=== PATIENT | male | born 1985 | race Caucasian/White ===

== ENCOUNTER 2018-05-24 18:22 | Emergency (ER) | payer OTHER, SELFPAY ==
[2018-05-24 18:23] VITALS: BP 140/99; PULSE 64; RESP 16; TEMP 36.7; O2SAT 99; BMI 32.3
[2018-05-24 19:15] VITALS: O2SAT 100
--- NOTE | 2018-05-24 19:15 | RAD_ITS ---
STUDY: X-RAY CHEST REASON FOR EXAM: Male, 32 years old. Chest pain TECHNIQUE: AP portable COMPARISON: June 16, 2016 FINDINGS: The lungs are clear and expanded. There is no demonstrated pleural abnormality. Normal size heart. Normal mediastinum and bronson. Normal visualized pulmonary arteries. Normal visualized aortic arch and descending thoracic aorta. Normal visualized thoracic spine. Normal visualized ribs, clavicles, and shoulders. There is no demonstrated abnormality of the visualized soft tissue structures of the upper abdomen. No change since previous study RAD/Chest 1 View (Portable) IMPRESSION: Normal x-ray examination of the chest. Electronically Signed: Dallin Chopra MD at 19:38 EST , Service support ,
[2018-05-24 19:22] VITALS: BP 132/74; PULSE 58; RESP 16; O2SAT 97
[2018-05-24] MEDS: Aspirin 81 MG TAB.CHEW 324 MG PO (19:25)
--- NOTE | 2018-05-24 19:29 | EKG12_ITS ---
Test Reason : CP Blood Pressure : / mmHG Vent. Rate : 063 BPM Atrial Rate : 063 BPM P-R Int : 154 ms QRS Dur : 086 ms QT Int : 408 ms P-R-T Axes : 018 002 030 degrees QTc Int : 417 ms Normal sinus rhythm Normal ECG Confirmed by BETSY RUIZ, MANINDER ([id number]), editor index MAGALI CYR ([id number]) on 05/26/2018 3:17:24 PM Referred By: DR JARQUIN Confirmed By:MANINDER MEYER MD
[2018-05-24 19:34] LABS: Absolute Lymphocyte Count 1.84 X10^3/ul (0.83-4.51); Absolute Neutrophil Count 3.1 X10^3/uL (2.0-7.7); Basophil# 0.02 X10^3/uL; Basophil% 0.4 % (0-1); Eosinophil# 0.09 X10^3/uL; Eosinophils% 1.7 % (0-5); Hematocrit 45.2 % (40-54); Hemoglobin 15.1 g/dl (13.0-16.5); Lymphocyte # 1.84 X10^3/ul (4.0); Mean Corp Hgb Conc 33.4 g/gl (32-36); Mean Corpuscular Hgb 30.3 pg (27.0-32.0); Mean Corpuscular Volume 90.8 fL (80-94); Mean Platelet Vol. 10.3 fl (6.2-12.0); Monocyte# 0.39 X10^3/uL; Monocyte% 7.2 % (0-10); Neutrophil # 3.07 X10^3/uL (2.7-7.7); Neutrophil % 56.7 % (47-70); Platelet Count 268 K/mm3 (150-450); RBC Distribution Width CV 13.3 % (11.6-14.6); RBC Distribution Width SD 43.4 fl (35.1-43.9); Red Blood Count 4.98 M/mm3 (4.6-6.2); White Blood Count 5.4 K/mm3 (4.4-11.0)
[2018-05-24 19:36] LABS: POSITIVE COUNT NO; POSITIVE DIFFERENTIAL NO; POSITIVE MORPHOLOGY NO
[2018-05-24 19:50] LABS: Anion Gap 8 (5-15); BUN 16 mg/dL (7-18); BUN/Creat Ratio 16.7 RATIO (10-20); Calcium,Total 9.2 mg/dL (8.5-10.1); Chloride 101 mmol/L (98-107); Creatinine, Serum 0.96 mg/dL (0.70-1.30); EST Glomerular Filtration Rate 95 mL/min (>60); Est Glom Filt Rate - Afr Amer 115 mL/min (>60); Glucose 76 mg/dL (74-106); Potassium 3.8 mmol/L (3.5-5.1); Sodium Level 138 mmol/L (136-145)
[2018-05-24 20:00] VITALS: BP 115/87; PULSE 59; RESP 16; O2SAT 95
--- NOTE | 2018-05-24 20:43 | ED.VISSUMM ---
- ER Visit Summary Date of Service: 05/24/18 Chief Complaint: Chest pain History of Present Illness: The patient is a 32 M with 4-day history of chest pain this is intermittent and lasts 1-2 seconds and sharp. He also has some indigestion and epigastric pain. There is nausea no vomiting. No fever chills back pain or cough. Physical Examination: Not appear in acute distress. Moist mucous membranes, no obvious facial deformity No C-spine tenderness supple neck. Regular rate and rhythm without any obvious murmurs Clear lungs bilaterally speaking in full sentences without any obvious respiratory distress Abdomen soft and nontender to my palpation, no epigastric pain, no guarding or rebound Moves all extremities without any difficulty or pain. Skin does not show any obvious rashes or lesions, no trauma. Alert oriented ?3 with no gross focal deficit Emergency Department Course and Treatment: Patient has a normal cardiac workup, heart score is a 0. He is certainly safe for discharge. This may be indigestion I will treat as such. Discharge stable condition Impression: Chest pain unknown etiology This note was generated with Sponge dictation software. It may contain incorrect words, spelling, and punctuation that were not noted in review of the chart prior to signing ED Disposition - Plan for ED Patient: Disposition: Home or Assisted Living Chief Complaint: Chest Pain Instructions: ED Chest Pain Noncardiac Ch, ED Chest Pain Atypical Unkn Cause Prescriptions: Omeprazole 40 mg PO DAILY #30 capsule. Referrals: Lionel Marsh MD [Primary Care Provider] - 3-5 Days
[2018-05-24 21:14] VITALS: BP 118/74; PULSE 72; RESP 17; O2SAT 96
== END 2018-05-24 21:14 | disposition home or self-care (01) ==
PROVIDERS: Emergency Provider Emergency Medicine; Family Provider Family Medicine; PCP Family Medicine
DX: R07.9 Chest pain, unspecified (principal); R10.13 Epigastric pain
CPT/HCPCS: 71045; 80048; 84484; 85025; 93005; 99285; A4216

== ENCOUNTER → 2018-06-20 10:38 | Outpatient (CLI) | payer OTHER, SELFPAY ==
[2018-06-08 14:47] VITALS: BMI 31.1
--- NOTE | 2018-06-20 10:40 | STE_ITS ---
Reason For Study: chest pain Stress Results Protocol: Aureliano Protocol Maximum Predicted HR: 185 bpm Target HR: 157 bpm % Maximum Predicted HR: 98 % DurationHeart Rate Stage (mm:ss) (bpm) BP Baseline 50 120/84 Stage 1 3:00 102 138/98 Stage 2 3:00 129 160/88 Stage 3 3:00 164 172/96 Stage 4 2:01 181 182/94 Recovery 101 122/74 Stress Duration: 11:01 mm:ss Maximum Stress HR: 181 bpm Baseline Echocardiogram Findings Stress Echo Wall motion Data Resting WM Intermediate WM Stress WM Resting Wall Motion Wall Motion Stress No regional wall motion No regional wall motion abnormalities noted. abnormalities noted. Ejection Fraction 55 %. Ejection Fraction 65 %. Stress Results Normal blood pressure response to exercise. Exercise was stopped due to achievement of target heart rate. Interpretation Summary Exercise stress echo. Resting EKG demonstrates sinus bradycardia with a rate of 54 bpm normal intervals are noted resting blood pressure 120/84 mmHg. The patient exercised according to the regular Aureliano protocol for a total duration of 11 minutes completing 2 minutes into stage IV of the Aureliano protocol the maximum heart rate attained was 193 bpm which was 104% of maximum predicted heart rate the maximum workload was 13.7 metabolic equivalents. At rest there were no ST or T wave changes noted suggest ischemia at peak exercise no ST or T wave changes were noted to suggest ischemia. The resting blood pressure is 120/84 with a peak blood pressure 182/94 mmHg. Rate pressure product was 29,068. No angina was noted no arrhythmias were noted. Stress echocardiographic images. The resting echocardiographic images demonstrated an ejection fraction of 55% with no regional wall motion abnormalities present. The stress echocardiographic images demonstrated thickening of all gamboa and improvement in left ventricular ejection fraction estimated at 65%. No wall motion abnormalities were noted. Conclusion: Normal stress echocardiographic images at a high workload. No clinical angina noted. Preserved ejection fraction. Excellent functional capacity. Ordering Physician: Dipak Cota MD Referring Physician: Dipak Cota Performed By: Raya Moy RDCS
--- OUTSIDE RECORDS SUMMARY | 2018-08-13 15:57 | XMS RPT_ITS | Clinical Summary ---
:1985 Author Organization [facility] Address [address] [place] [phone] Phone Care Team Providers Name Role Phone Juan Carlos Interiano Unavailable Conditions or Problems Problem Name Problem Onset Status Entry Provider Comment Standard Annotate Code Date Date Description Abdominal 40600921 Active Juan Carlos Barton Abdominal pain pain (SNOMED 08/09 08/[address]) Mononucleosis 374827287 Active Roberto D Infectious , infectious (SNOMED 10/20 10/[address]) Fatigue 90677766 Active Roberto D Fatigue (SNOMED 10/20 10/[address]) Abdominal 548831486 Active Arely Lora Acute abdominal pain, acute (SNOMED 10/20 10/[address]) 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 Abdominal 340940848 Active Ameena Tineo Right lower pain, right (SNOMED 03/05 03/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 thoracic structure CT) DO structure Pharyngitis, 791233643 Resolved Sukh A Acute acute (SNOMED 08/12 09/[address]) DO Conjunctiviti 3375127 Active Sukh A Conjunctivitis s (SNOMED 10/30 10/[address]) DO Palpitations 46344652 Active Sukh A Palpitations (SNOMED 10/30 10/[address]) DO Chest pain, 398219185 Active Sukh A Atypical chest atypical (SNOMED 10/30 10/[address]) DO Pharyngitis, 339456649 Removed Beatriz A Acute acute (SNOMED 08/12 09/15 Malys, DO pharyngitis CT) Medications Medication Instructions Start Stop Generic Name NDC Provider Date Date LORAZEPAM 1 MG 1/2-1 tablet by LORAZEPAM [id number] Sukh A TABS mouth daily as 8 Maximo DO needed for anxiety OLOPATADINE HCL One drop in each OLOPATADINE 32930237123 Sukh A 0.1 % SOLN eye daily 5 HCL Maximo DO LIDOCAINE 1-2 ml po every LIDOCAINE HCL 65686197371 Beatriz A VISCOUS 2 % 4-6 hours as 5 Malys, DO SOLN needed for sore throat AMOXICILLIN 875 1 po Twice daily AMOXICILLIN 27165828493 Beatriz A MG TABS x 7 days 5 Malys, DO AMOXICILLIN 875 1 po Twice daily / AMOXICILLIN 68925267615 Sukh A MG TABS x 7 days 5 14 Maximo DO LIDOCAINE 1-2 ml po every / LIDOCAINE HCL 53832517433 Sukh A VISCOUS 2 % 4-6 hours as 5 14 Maximo DO SOLN needed for sore throat OLOPATADINE HCL One drop in each / OLOPATADINE 98493709231 Sukh A 0.1 % SOLN eye daily 5 15 HCL Maximo DO LORAZEPAM 1 MG 1/2-1 tablet by / LORAZEPAM 33126867107 Sukh A TABS mouth daily as 8 15 Maximo DO needed for anxiety Medications Administered No information available. Allergies, Adverse Reactions, Alerts Observed no known allergies at Results Date Name Value Unit Range Flag Description Lab Report: CK-MB Quantitative and Index CK-MB INDEX% 1.6 % 0.0-1.4 H CK-MB (creatine kinase-MB) index, percentage CPK MB 0.9 NG/ML 0.0-5.0 creatine kinase MB isoenzyme (band), serum Replaced Document: (P) CBC W/Diff, Automated LYMPHCT AUTO 1.18 X10 3/UL 10*3/mm3 0.83-4.51 lymphocyte count, blood, automated ANC 2.1 X10 3/UL 10*3/mm3 2.0-7.7 neutrophil count, blood IMM GRANU % 0.000 % 0.0-0.9 immature granulocytes, percentage of total cells, blood BASOPHIL % 0.0 % 0-1 basophils as percent of blood leukocytes EOSINOPHIL % 1.6 % 0-5 eosinophils as percent of blood leukocytes MONOCYTE % 9.2 % 0-10 monocytes as percent of blood leukocytes LYMPHS % 31.8 % 19-41 lymphocytes as percent of blood leukocytes PMN % 57.4 % 47-70 neutrophils as percent of blood leukocytes Lab Report: Erythrocyte Sed Rate ESR 1 mm/h 0-15 erythrocyte sedimentation rate Lab Report: Vitamin B12 B12 473 pg/mL 211-911 vitamin b12, serum Lab Report: Comprehensive Metabolic Profil ANION GAP 5 5-15 anion gap, serum CO2 31.0 mmol/L 21.0-32.0 carbon dioxide, venous blood CHLORIDE 102 mmol/L 98-107 chloride, serum POTASSIUM 4.2 mmol/L 3.5-5.1 potassium, serum SODIUM 138 mmol/L 136-145 sodium, serum BILI TOTAL 0.60 mg/dL 0.20-1.00 bilirubin, serum, total SGPT (ALT) 34 U/L 12-78 alanine aminotransferase (SGPT), serum ALK PHOS 76 U/L 50-136 alkaline phosphatase, serum SGOT (AST) 33 U/L 15-37 aspartate aminotransferase (SGOT), serum CALCIUM 9.1 mg/dL 8.5-10.1 calcium, serum A/G RATIO 1.2 RATIO 0.9-2.4 albumin/globulin ratio, serum GLOBULIN TOT 3.2 g/dL 2.3-3.5 globulins, serum, total ALBUMIN 4.0 g/dL 3.4-5.0 albumin, serum PROTEIN, TOT 7.2 g/dL 6.4-8.2 protein, total, serum BUN/CREAT 13.6 RATIO 10-20 urea nitrogen/creatinine ratio, serum GFRAA 117 mL/min >60 Glomerular Filtration rate GFR EST 97 mL/min >60 estimated glomerular filtration rate CREATININE 0.96 mg/dL 0.70-1.30 creatinine, serum BUN 13 mg/dL 7-18 urea nitrogen, blood GLUCOSE SER 85 mg/dL 70-110 blood glucose Lab Report: CPK Total, Creatine Kinase CPK 239 U/L 39-308 creatine kinase, serum Lab Report: Magnesium MAGNESIUM 2.2 mg/dL 1.8-2.4 magnesium, serum Lab Report: Folates, (Folic Acid) FOLATE 26.20 ng/mL 3.1-17.5 H folate, serum Lab Report: Thyroid Stim Hormone (TSH) TSH 1.78 u[iU]/mL 0.358-3.74 thyroid stimulating hormone, serum Lab Report: CRP CRP < 2.90 mg/L mg/dL 0.0-3.0 C-reactive protein, serum Lab Report: ANTINUCLEAR ANTIBODIES DIRECT LARISA Negative Negative antinuclear antibody EKG Report: Midmark ECG Observations EKG INTERP Marked sinus electrocardiogram Bradycardia BORDERLINE interpretation RHYTHM EKG T AXIS 39 deg T wave axis, electrocardiogram EKG QRS AXIS 51 deg QRS axis, electrocardiogram EKG PWAVAXIS 36 deg P wave axis, electrocardiogram QRS INTERVAL 90 ms QRS duration, electrocardiogram ZZ-GE-[id number] 403 ms GE use only - for LinkLogic import when terms are not otherwise specified QT INTERVAL new path ms QT interval, electrocardiogram TN INTERVAL 148 ms TN interval, electrocardiogram EKGHRTRATE 48 BPM heart rate on electrocardiogram Lab Report: Troponin-I TROPONIN I < 0.02 ng/mL <0.06 troponin I Lab Report: CBC-Complete Blood Cnt No Diff MPV 10.4 fL 6.2-12.0 mean platelet volume PLATELETS 239 10*3/mm3 150-450 platelet count RDW-SD 44.7 fL 35.1-43.9 H red blood cell distribution width, size density RDW 13.8 % 11.6-14.6 red blood cell distribution width MCHC RBC 34.5 G/GL g/dL 32-36 mean corpuscular hemoglobin concentration, RBC MCH 30.8 pg 27.0-32.0 mean corpuscular hemoglobin, RBC MCV 89.1 fL 80-94 mean corpuscular volume, RBC HCT 42.6 % 40-54 hematocrit, blood HGB 14.7 g/dL 13.0-16.5 hemoglobin, blood RBC M/UL 4.78 10*6/uL 4.6-6.2 red blood count WBC BLOOD 4.5 10*9/L 4.4-11.0 leukocyte (white blood cells) count, blood Office Visit: UC: stomach pain x 3 weeks MONO TEST positive heterophile antibody screen (Monospot) Office Visit: UC: left lateral Abd pain MEDS REVIEW Done Documentation of current medications (procedure) NKMED T Documentation of current medications (procedure) FALLRSKASSES No Fall risk assessment ORALTOBACUSE Never Tobacco smoking status NHIS SMOK STATUS Never smoker Tobacco use [facility] Plan of Care Type Date Detail Appointment 04:30 PM Juan Carlos BEARD, [address] [facility] [address], [address], [place], [address], Referral ENT referral [facility] [place], [address] [place] [address], [place], [address] Referral ENT referral [facility], [address] [place] [address], [place], [address] Pending order *TROP - Troponin I Pending order X-Ray, Chest, PA & Lateral Pending order CT Abdomen and pelvis; without and with contrast Pending order EKG (In office) Pending order *CBC without Diff Pending order *CBC with Differential Pending order *CMP Complete Metabolic Panel Pending order *CRP - C-Reative Protein Pending order *B-12 Pending order *FOLS Folates-Folic Acid, Serum Pending order *Magnesium Pending order *TSH Pending order *LARISA Pending order *Sedimentation Rate (ESR) Pending order *Creatine Kinase (CK) Pending order *MERB Quantitative Mercury Pending order CT Thoracic Spine with Contrast Pending order MRI Thoracic Spine with Contrast Pending order *CBC with Differential Pending order *CRP - C-Reative Protein Pending order *Sedimentation Rate (ESR) Pending order *CKMB - CK-MB Quantitative & REL Index Pending order *LARISA Pending order *CMP Complete Metabolic Panel Pending order X-Ray, Chest, PA & Lateral Patient education ABDOMINAL%20PAIN Procedures Code Procedure Name Date Entry Date CPT-05372 Monospot (Office) 70866-4 *CBC without Diff 12719-6 *TROP - Troponin I CPT-70534 EKG (In office) 0184-1 *CBC with Differential 0786-1 *CMP Complete Metabolic Panel 56710-8 *CRP - C-Reative Protein 2132-9 *B-12 2284-8 *FOLS Folates-Folic Acid, Serum 79369-8 *Magnesium 3016-3 *TSH 15796-3 *Sedimentation Rate (ESR) 2157-6 *Creatine Kinase (CK) 5685-3 *MERB Quantitative Mercury 0270-1 *LARISA CPT-03853 CT Thoracic Spine with Contrast CPT-15984 MRI Thoracic Spine with Contrast 0184-1 *CBC with Differential 79547-9 *CRP - C-Reative Protein 03077-5 *Sedimentation Rate (ESR) 0173-1 *CKMB - CK-MB Quantitative & REL Index 0786-1 *CMP Complete Metabolic Panel 0270-1 *LARISA CPT-90872 X-Ray, Chest, PA & Lateral Vital Signs Date Name Value Unit Description BMI (Body Mass Index) 30.38 kg/m2 Body Mass Index [Ratio] Body Temperature 97.7 [degF] temperature E&M BP Diastolic 74 mm[Hg] blood pressure, diastolic - 8462-4 BP Systolic 108 mm[Hg] blood pressure, systolic - 8480-6 Heart Rate 74 /min pulse rate E&M - 8867-4 Height 72 [in_us] height E&M - 8302-2 Respiratory Rate 12 /min respiratory rate E&M - 9279-1 Weight Measured 224 [lb_av] weight E&M - 3141-9 BSA (Body Surface Area) 2.18 body surface area
--- OUTSIDE RECORDS SUMMARY | 2018-08-13 15:57 | XMS RPT_ITS | Clinical Summary ---
:1985 Author Organization [facility], [facility] Address [address] [place] [address] Phone Care Team Providers Name Role Phone Sonya GLASS, Sukh A Unavailable Conditions or Problems Problem Name Problem Onset Status Entry Provider Comment Standard Annotate Code Date Date Description Pharyngitis 369935471 Active Sukh A Pharyngitis (SNOMED 08/15 08/[address]) MARIA LUISA Abdominal 64993550 Active Juan Carlos Barton Abdominal pain pain (SNOMED 08/09 08/[address]) Mononucleosis 020784736 Active Roberto D Infectious , infectious (SNOMED 10/20 10/[address]) Fatigue 60351231 Active Roberto D Fatigue (SNOMED 10/20 10/[address]) Abdominal 355223818 Active Arely Lora Acute abdominal pain, 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 (SNOMED 10/20 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 682289712 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 Ameena Tineo Right lower pain, right (SNOMED 03/05 03/05 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 lower CT) quadrant Leukopenia, 02980899 Active Sukh A Leukopenia mild (SNOMED 02/06 02/[address]) DO Muscle strain 70466239 Inactive Sukh A Muscle strain (SNOMED 02/06 02/[address]) DO Muscle spasm 14706393 Active Sukh A Cramp (SNOMED 01/30 01/[address]) DO Numbness 27170013 Active Sukh A Numbness parethesias (SNOMED 01/30 01/[address]) DO Generalized 69301413 Active Sukh A Generalized anxiety (SNOMED 12/03 12/03 [facility] anxiety disorder CT) DO disorder Mass of 351216078 Active Sukh A Mass of thoracic (SNOMED 12/03 12/03 [facility] thoracic structure CT) DO structure Pharyngitis, 339072059 Resolved Sukh A Acute acute (SNOMED 08/12 09/15 [facility] pharyngitis CT) DO Conjunctiviti 5917692 Active Sukh A Conjunctivitis s (SNOMED 10/30 10/[address]) DO Palpitations 06636281 Active Sukh A Palpitations (SNOMED 10/30 10/[address]) DO Chest pain, 052183405 Active Sukh A Atypical chest atypical (SNOMED 10/30 10/[address]) DO Pharyngitis, 952289695 Removed Beatriz A Acute acute (SNOMED 08/12 09/15 Malys, DO pharyngitis CT) Medications Medication Instructions Start Stop Generic Name [facility] Provider Date Date LORAZEPAM 1 MG 1/2-1 tablet by LORAZEPAM 11628553874 Sukh A TABS mouth daily as 8 Maximo DO needed for anxiety OLOPATADINE HCL One drop in each OLOPATADINE 58933897542 Sukh A 0.1 % SOLN eye daily 5 HCL Maximo DO LIDOCAINE 1-2 ml po every LIDOCAINE HCL 77468598839 Beatriz A VISCOUS 2 % 4-6 hours as 5 Malys, DO SOLN needed for sore throat AMOXICILLIN 875 1 po Twice daily AMOXICILLIN 29702819424 Beatriz A MG TABS x 7 days 5 Malys, DO AMOXICILLIN 875 1 po Twice daily / AMOXICILLIN 77996781044 Sukh A MG TABS x 7 days 5 14 Maximo DO LIDOCAINE 1-2 ml po every / LIDOCAINE HCL 53419381080 Sukh A VISCOUS 2 % 4-6 hours as 5 14 Maximo DO SOLN needed for sore throat OLOPATADINE HCL One drop in each / OLOPATADINE 54157946252 Sukh A 0.1 % SOLN eye daily 5 15 HCL Maximo DO LORAZEPAM 1 MG 1/2-1 tablet by LORAZEPAM 76382124344 Sukh A TABS mouth daily as 8 [...] INTERVAL new path ms QT interval, electrocardiogram GA INTERVAL 148 ms GA interval, electrocardiogram EKGHRTRATE 48 BPM heart rate [...] heterophile antibody screen (Monospot) Office Visit: UC: Sore throat/congestion RAPID STREP negative Streptococcus pyogenes DNA [Presence] in Throat by Probe and target amplification method MEDS REVIEW Done Documentation of current medications (procedure) NKMED T Documentation of current medications (procedure) FALLRSKASSES No Fall risk assessment ORALTOBACUSE Never Tobacco smoking status NHIS SMOK STATUS Never smoker Tobacco use [facility] Plan of Care Type Date Detail Appointment 02:30 PM Roberto BEARD, [address] [place] [address], [address], [place], [address], Referral ENT referral [place], [address] [place] [address], [address] Referral ENT referral [facility] [place], [address] [place] [address], [address] Pending order *Culture, R/O Strep A Swab Pending order *TROP - Troponin I Pending [...] Procedures Code Procedure Name Date Entry Date CPT-37855 Rapid Strep (Office) CPT-58279 Monospot (Office) 16702-3 *CBC without Diff 12544-3 *TROP - Troponin I CPT-07116 EKG (In office) 0184-1 *CBC with Differential 0786-1 *CMP Complete Metabolic Panel 62922-8 *CRP - C-Reative Protein 2132-9 *B-12 2284-8 *FOLS Folates-Folic Acid, Serum 71339-4 *Magnesium 3016-3 *TSH 47858-8 *Sedimentation Rate (ESR) 2157-6 *Creatine Kinase (CK) 5685-3 *MERB Quantitative Mercury 0270-1 *LARISA CPT-77708 CT Thoracic Spine with Contrast CPT-87547 MRI Thoracic Spine with Contrast 0184-1 *CBC with Differential 11379-2 *CRP - C-Reative Protein 29040-5 *Sedimentation Rate (ESR) 0173-1 *CKMB - CK-MB Quantitative & REL Index 0786-1 *CMP Complete Metabolic Panel 0270-1 *LARISA CPT-36312 X-Ray, Chest, PA & Lateral Vital Signs Date Name Value Unit Description BMI (Body Mass Index) 30.65 kg/m2 Body Mass Index [Ratio] Body Temperature 98.4 [degF] temperature E&M BP Diastolic 82 mm[Hg] blood pressure, diastolic - 8462-4 BP Systolic 124 mm[Hg] blood pressure, systolic - 8480-6 Heart Rate 62 /min pulse rate E&M - 8867-4 Height 72 [in_us] height E&M - 8302-2 Respiratory Rate 12 /min respiratory rate E&M - 9279-1 Weight Measured 226 [lb_av] weight E&M - 3141-9 BSA (Body Surface Area) 2.18 body surface area
--- OUTSIDE RECORDS SUMMARY | 2018-08-13 15:57 | XMS RPT_ITS | Clinical Summary ---
:1985 Author Organization [facility] Address [address] [place] [id number] Phone Care Team Providers Name Role Phone Roberto Cerda Unavailable Conditions or Problems Problem Name Problem Onset Status Entry Provider Comment Standard Annotate Code Date Date Description Pharyngitis 762474829 Active Sukh A Pharyngitis (SNOMED 08/15 08/[address]) PA-C Abdominal 76871385 Active Juan Carlos Barton Abdominal pain pain (SNOMED 08/09 08/[address]) Mononucleosis 508326535 Active Roberto Barron Infectious , infectious (SNOMED 10/20 10/[address]) Fatigue 80513520 Active Roberto D Fatigue (SNOMED 10/20 10/[address]) Abdominal 963211218 Active Arely Lora Acute abdominal pain, acute (SNOMED 10/20 10/[address]) 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 Abdominal 359471467 Active Ameena Tineo Right lower pain, right (SNOMED 03/05 03/05 Jack [employer]ACH[employer] quadrant pain lower CT) quadrant Leukopenia, 38392134 Active Sukh A Leukopenia mild (SNOMED 02/06 02/[address]) DO Muscle strain 03563585 Inactive Sukh A Muscle strain (SNOMED 02/06 02/[address]) DO Muscle spasm 09755087 Active Sukh A Cramp (SNOMED 01/30 01/[address]) DO Numbness 26072576 Active Sukh A Numbness parethesias (SNOMED 01/30 01/[address]) DO Generalized 41793188 Active Sukh A Generalized anxiety (SNOMED 12/03 12/03 [facility] anxiety disorder CT) DO disorder Mass of 325009096 Active Sukh A Mass of thoracic (SNOMED 12/03 12/03 [facility] thoracic structure CT) DO structure Pharyngitis, 528777448 Resolved Sukh A Acute acute (SNOMED 08/12 09/15 [facility] pharyngitis CT) DO Conjunctiviti 6338906 Active Sukh A Conjunctivitis s (SNOMED 10/30 10/[address]) DO Palpitations 84706646 Active Sukh A Palpitations (SNOMED 10/30 10/[address]) DO Chest pain, 197712331 Active Sukh A Atypical chest atypical (SNOMED 10/30 10/[address]) DO Pharyngitis, 280596680 Removed Beatriz A Acute acute (SNOMED 08/12 09/15 Malys, DO pharyngitis CT) Medications Medication Instructions Start Stop Generic Name [facility] Provider Date Date LORAZEPAM 1 MG 1/2-1 tablet by LORAZEPAM [id number] Sukh A TABS mouth daily as 8 Maximo DO needed for anxiety OLOPATADINE HCL One drop in each OLOPATADINE 56446193640 Sukh A 0.1 % SOLN eye daily 5 HCL Maximo DO LIDOCAINE 1-2 ml po every LIDOCAINE HCL 43790298329 Beatriz A VISCOUS 2 % 4-6 hours as 5 Malys, DO SOLN needed for sore throat AMOXICILLIN 875 1 po Twice daily AMOXICILLIN 54054464348 Beatriz A MG TABS x 7 days 5 Malys, DO AMOXICILLIN 875 1 po Twice daily / AMOXICILLIN 59107969183 Sukh A MG TABS x 7 days 5 14 Maximo DO LIDOCAINE 1-2 ml po every / LIDOCAINE HCL 75398900180 Sukh A VISCOUS 2 % 4-6 hours as 5 14 Maximo DO SOLN needed for sore throat OLOPATADINE HCL One drop in each / OLOPATADINE 12810253351 Sukh A 0.1 % SOLN eye daily 5 15 HCL Maximo DO LORAZEPAM 1 MG 1/2-1 tablet by LORAZEPAM 26230088088 Sukh A TABS mouth daily as 8 [...] QRS INTERVAL 90 ms QRS duration, electrocardiogram QT INTERVAL new path ms QT interval, electrocardiogram TX INTERVAL 148 ms TX interval, electrocardiogram EKGHRTRATE 48 BPM heart rate [...] status NHIS SMOK STATUS Never smoker Tobacco smoking status [facility] Microbiology: Culture, R/O Strep A [id number] . GE use only - for [employer] import when terms are not otherwise specified Plan of Care Type Date Detail Referral ENT referral [facility], [address] [place] [address], [phone] Referral ENT referral [facility], [address] [place] [address], [phone] Pending order *Culture, R/O Strep A Swab [...] Procedures Code Procedure Name Date Entry Date CPT-57847 Rapid Strep (Office) CPT-37998 Monospot (Office) 05351-2 *CBC without Diff 48576-6 *TROP - Troponin I CPT-87081 EKG (In office) 0184-1 *CBC with Differential 0786-1 *CMP Complete Metabolic Panel 58026-2 *CRP - C-Reative Protein 2132-9 *B-12 2284-8 *FOLS Folates-Folic Acid, Serum 91643-3 *Magnesium 3016-3 *TSH 84578-5 *Sedimentation Rate (ESR) 2157-6 *Creatine Kinase (CK) 5685-3 *MERB Quantitative Mercury 0270-1 *LARISA CPT-57123 CT Thoracic Spine with Contrast CPT-52175 MRI Thoracic Spine with Contrast 0184-1 *CBC with Differential 55692-2 *CRP - C-Reative Protein 23393-8 *Sedimentation Rate (ESR) 0173-1 *CKMB - CK-MB Quantitative & REL Index 0786-1 *CMP Complete Metabolic Panel 0270-1 *LARISA CPT-65637 X-Ray, Chest, PA & Lateral Vital Signs [...]
--- OUTSIDE RECORDS SUMMARY | 2018-08-13 15:58 | XMS RPT_ITS ---
:1985 Author Organization OHIP Care Team Providers Name Role Phone Lionel Marsh Primary Care Unavailable Konstantin Jarquin Attending Unavailable Tresa Miller Attending Unavailable Beata, Lorton Attending Unavailable Sukh Marsh Referring Unavailable Beata, Lorton Attending Unavailable Beata, Dipak Referring Unavailable Lionel Marsh Primary Care Unavailable Beata, Lorton Attending Unavailable Beata, Dipak Referring Unavailable Lionel Marsh Primary Care Unavailable Beata, Dipak Consulting Unavailable PROBLEMS PROBLEMS DATE TYPE CONDITION / CODE ATTENDING STATUS SOURCE 06/20/2018 Unknown R07.89 - Other Beata, Dipak Active [facility] chest pain / Community R07.89(ICD-10) Hospital Repository PROCEDURES PROCEDURES No Procedure Records FoundRESULTS RESULTS STRESS TEST ECHO W/O Observed: 06/20/2018 Status: F Source: [facility] CONTRAST 12:45 PM [facility] REPOSITORY [facility] Cardiovascular [address] [address] Stress Test Echo w/o Contrast MR#: [id number] Acct: [id number] Name: OTIS GEE Rep #: [id number] : 1985 33 From: Dipak Meyer MD [facility] Status: REG CLI Ordering Dr: Dipak Meyer MD Sex: M C Reason For Study: chest pain Stress Results Protocol: Aureliano Protocol Maximum Predicted HR: 185 bpm Target HR: 157 bpm % Maximum Predicted HR: 98 % DurationHeart Rate Stage (mm:ss) (bpm) BP Baseline 50 120/84 Stage 1 3:00 102 138/98 Stage 2 3:00 129 160/88 Stage 3 3:00 164 172/96 Stage 4 2:01 181 182/94 Recovery 101 122/74 Stress Duration: 11:01 mm:ss Maximum Stress HR: 181 bpm Baseline Echocardiogram Findings Stress Echo Wall motion Data Resting WM Intermediate WM Stress WM Resting Wall Motion Wall Motion Stress No regional wall motion No regional wall motion abnormalities noted. abnormalities noted. Ejection Fraction 55 %. Ejection Fraction 65 %. Stress Results Normal blood pressure response to exercise. Exercise was stopped due to achievement of target heart rate. Interpretation Summary Exercise stress echo. Resting EKG demonstrates sinus bradycardia with a rate of 54 bpm normal intervals are noted resting blood pressure 120/84 mmHg. The patient exercised according to the regular Aureliano protocol for a total duration of 11 minutes completing 2 minutes into stage IV of the Aureliano protocol the maximum heart rate attained was 193 bpm which was 104% of maximum predicted heart rate the maximum workload was 13.7 metabolic equivalents. At rest there were no ST or T wave changes noted suggest ischemia at peak exercise no ST or T wave changes were noted to suggest ischemia. The resting blood pressure is 120/84 with a peak blood pressure 182/94 mmHg. Rate pressure product was 29,068. No angina was noted no arrhythmias were noted. Stress echocardiographic images. The resting echocardiographic images demonstrated an ejection fraction of 55% with no regional wall motion abnormalities present. The stress echocardiographic images demonstrated thickening of all gamboa and improvement in left ventricular ejection fraction estimated at 65%. No wall motion abnormalities were noted. Conclusion: Normal stress echocardiographic images at a high workload. No clinical angina noted. Preserved ejection fraction. Excellent functional capacity. Ordering Physician: Dipak Meyer MD Referring Physician: Dipak Meyer Performed By: Raya Moy RDCS 06/20/18 1245 Date Dipak Meyer MD CC: Dipak Meyer MD; Sukh Marsh DO; Lionel Marsh MD Date Dictated: 06/20/18 1101 Date Transcribed: 06/20/18 1245 Seed Sales Manager: Signed CARDIOLOGY VISIT Observed: 06/08/2018 Status: F Source: [place] REPORT 3:52 PM [facility] REPOSITORY [place] [facility] [address] [place] [address] OFFICE VISIT Date of Service: 06/08/18 MR#: [id number] Acct: [id number] Name: OTIS GEE Rep #: [id number] : 1985 Provider: Dipak Meyer MD Age/Sex: 33/M Location: [facility] Status: Signed HPI HPI Chief Complaint: Initial visit Details: OTIS GEE, is a 33 M who presents to the office today for an initial visit. He is a pleasant gentleman with no previous cardiac history who says that he has been experiencing some chest discomfort as well as palpitations. He is also had some fatigue and abdominal discomfort. He is you have investigated the above with blood work as well as with some laboratory imaging. These episodes of discomfort are not necessarily with activity. He does have a busy schedule and sometimes imbibes a fair amount of alcoholic beverage. He does not consume any significant caffeinated beverages still. He has had no dizziness or diaphoresis no near syncope or syncope. He is on no medications. An EKG that was performed and during an ER visit demonstrated normal sinus rhythm with a rate of 63 bpm. His physical exam here today demonstrates clear lung enciso regular rate and rhythm and no pedal edema. Intake Vital Signs06/08/18 Blood Pressure 116/78 06/08/18 Blood Pressure Position Standing 06/08/18 Pulse Rate 76 06/08/18 Height 6 ft Intake Visit Reasons: PCP referred for fatigue Allergies No Known Allergies Allergy (Verified 06/08/18 14:35) [facility] Medical History Anxiety (Chronic) Obesity (Chronic) Family History Father CAD (coronary artery disease) age 54 Social History Smoking Status: Former smoker quit date: 07/19/05 pack-years: 3 alcohol intake: current alcohol intake frequency: a few times a week ROS Const Const: Positive for fatigue, weakness and other (Admits to binge drinking and having more symptoms the day after.); negative for difficulty sleeping, frequent falls, excessive sweating or headache(s) Eyes Eyes: Negative for loss of peripheral vision, transient loss of vision, blurry vision, tunnel vision or double vision ENT ENT: Positive for dizziness (When sitting and ambulating); negative for headache(s), Nosebleed/epistaxis or balance problems Cardio Chest Pain: Yes Character: dull, tightness, other (ache w/ nausea) Onset: at rest, exercise Location: mid sternal, left chest Duration: hours, minutes Palpitations: Yes (Waking up with palpitations and SOB feels anxious) feels like its: skipping, pounding, fast Edema: None Muscle aches with walking: None Resp Respiratory: Positive for SOB at rest (States it feels like he can't get a breath); negative for SOB with activity, SOB orthopnea\SOB lying down, paroxysmal nocturnal dyspnea or Cough GI GI: Negative nausea, heartburn, black,tarry stools or vomiting : Negative for hematuria Musc Musc: Negative for balance problems, muscle aches/ myalgia, muscle weakness or joint pain Skin Skin: Negative non-healing lesions, unusual bruising or rash Neuro Neuro: Positive for weakness, lightheadedness and dizziness (When sitting and ambulating); negative for frequent falls, headache(s), blurry vision, double vision, orthostatic symptoms, near syncope, syncope or lack of coordination Christopher Hematologic/Lymphatic: Negative for easy bruising or easy bleeding Endo Endo: Positive for fatigue; negative for excessive sweating or increased thirst/drinking Psych Psych: Negative for anxiety or depression Allergy Allergy/Immunology: Negative for hives, Negative for rash Cardiology Exam Const Appearance: cooperative, healthy appearing, well developed, well groomed and no acute distress Nutritional Appearance: well nourished and average body habitus Orientation: alert, awake and oriented x3 Head Head: normal to inspection, normocephalic and atraumatic Ears: hearing grossly normal bilaterally and external ears normal Nose: external nose normal, nasal mucous membranes and turbinates normal, nares normal, septum normal, no nasal discharge Face and Sinus: face symmetric Mouth: oral mucosae normal, tongue normal, oropharynx normal and moist mucous membranes Teeth and gingiva: dentition normal Throat: posterior oropharynx normal, tonsils normal and uvula midline Eyes General: appearance normal, both eyes and all related structures Eyelids: eyelids normal Conjunctivae: conjunctivae normal Pupils: PERRL, normal by confrontation and accommodation normal EOM: EOM intact bilaterally Neck Neck: normal visual inspection, trachea midline and no JVD JVD: +5 Carotids: normal carotid upstroke and bounding pulses Chest Chest inspection: normal inspection of the chest, symmetric chest movement and normal respiratory effort Auscultation: Bilateral: Clear to Auscultation Cardio Palpation: normal PMI Rate: regular rate Rhythm: regular rhythm Heart sounds: S1 normal, S2 normal and normal, physiologic split S2; negative rub, gallop or murmur GI GI: normal to inspection, soft, no hepatosplenomegaly and bowel sounds present Neuro General: alert, awake, oriented x3, no focal sensory deficit, gait normal and moves all extremities Skin Skin: no rashes or lesions noted Extremities Pulses: Normal: Right Femoral Pulse, Left Femoral Pulse, Right Dorsalis Pedis Pulse, Left Dorsalis Pedis Pulse, Right Posterior Tibial Pulse, Left Posterior Tibial Pulse, Right Radial Pulse, Left Radial Pulse Lower Extremity Edema: None: Bilateral Musculoskel Musculoskeletal: No joint tenderness Psych Psychological: normal affect Assessment AND Plan 1. Atypical chest pain R07.89 Plan He does present with rather atypical chest discomfort. My recommendation is for us to obtain a stress echocardiogram to assess his left ventricular function as well as characterize his exercise capacity and compared to other 33-year-old's. At this time I do not think that there is a reason to pursue any CAT scanning of his chest. I also did review his blood work and found it to be fairly benign. Troponin evaluation in the ER was noted to be normal. Depending on the results of the above tests further recommendations will be made. Orders Orders: Plan Detail Follow Up prn Coding Level of Care Code Off vis,new,level 4 Diagnoses Atypical chest pain R07.89 Coding Level of Care Code Off vis,new,level 4 Diagnoses Atypical chest pain R07.89 06/08/18 1552 <Electronically signed by Dipak Meyer MD> Date Dipak Meyer MD Cosigner Signature: Date (if applicable) CC: Sukh Marsh DO 12 LEAD ELECTROCARDIOGRAM Observed: 05/26/2018 Status: F Source: [place] 3:17 PM [facility] REPOSITORY [facility] Cardiovascular Services [address] [place] [address] 12 Lead EKG 05/24/18 1825 MR#: [id number] Acct: [id number] Name: OTIS GEE Rep #: [id number] : 1985 32 From: Dipak Meyer MD Attending Dr: Status: DEP ER Ordering Dr: Konstantin Jarquin MD Date: 05/24/18 Location: ED Sex: M C Admitted: Test Reason : CP Blood Pressure : / mmHG Vent. Rate : 063 BPM Atrial Rate : 063 BPM P-R Int : 154 ms QRS Dur : 086 ms QT Int : 408 ms P-R-T Axes : 018 002 030 degrees QTc Int : 417 ms Normal sinus rhythm Normal ECG Confirmed by DIPAK MEYER MD ([id number]), editor greeting card MAGALI CYR ([id number]) on 05/26/2018 3:17:24 PM Referred By: DR JARQUIN Confirmed By:DIPAK MEYER MD 05/26/18 1517 Date Dipak Meyer MD CC: Lionel Marsh MD; Konstantin Jarquin MD Signed EMERGENCY DEPARTMENT Observed: 05/24/2018 Status: F Source: [place] SUMMARY 8:56 PM [facility] REPOSITORY [facility] Medical Records Department [address] [place] [address] Emergency Department Summary 05/24/18 2043 MR#: [id number] Acct: [id number] Name: OTIS GEE Rep #: [id number] : 1985 32 From: Konstantin Jarquin MD PCP: Lionel Marsh MD Status: REG ER - ER Visit Summary Date of Service: 05/24/18 Chief Complaint: Chest pain History of Present Illness: The patient is a 32 M with 4-day history of chest pain this is intermittent and lasts 1-2 seconds and sharp. He also has some indigestion and epigastric pain. There is nausea no vomiting. No fever chills back pain or cough. Physical Examination: Not appear in acute distress. Moist mucous membranes, no obvious facial deformity No C-spine tenderness supple neck. Regular rate and rhythm without any obvious murmurs Clear lungs bilaterally speaking in full sentences without any obvious respiratory distress Abdomen soft and nontender to my palpation, no epigastric pain, no guarding or rebound Moves all extremities without any difficulty or pain. Skin does not show any obvious rashes or lesions, no trauma. Alert oriented 3 with no gross focal deficit Emergency Department Course and Treatment: Patient has a normal cardiac workup, heart score is a 0. He is certainly safe for discharge. This may be indigestion I will treat as such. Discharge stable condition Impression: Chest pain unknown etiology This note was generated with BlockTrail dictation software. It may contain incorrect words, spelling, and punctuation that were not noted in review of the chart prior to signing ED Disposition - Plan for ED Patient: Disposition: Home or Assisted Living Chief Complaint: Chest Pain Instructions: ED Chest Pain Noncardiac Ch, ED Chest Pain Atypical Unkn Cause Prescriptions: Omeprazole 40 mg PO DAILY #30 capsule.dr Referrals: Lionel Marsh MD [Primary Care Provider] - 3-5 Days What to do if you have Problems For any increased pain, shortness of breath, bleeding, nausea or vomiting, chest pain, or any unexpected problems, contact your Primary Care Provider. Call [facility] ([phone]) or report to the closest Emergency Room. Call 911 if necessary. 05/24/182055 <Electronically signed by Konstantin Jarquin MD> Date Konstantin Jarquin MD Cosigner Signature (If Indicated): Date CC: Lionel Marsh MD CHEST 1 VIEW Observed: 05/24/2018 Status: F Source: [place] (PORTABLE) 7:14 PM [facility] REPOSITORY [facility] Imaging Services [address] [place] [address] Chest 1 View (Portable) MR#: [id number] Acct: [id number] Name: OTIS GEE Rep #: [id number] : 1985 M 32 From: Dallin Chopra MD PCP: Lionel Marsh MD Status: PRE ER Study: Chest 1 View (Portable) Date of Exam: 05/24/18 Exam# [id number] Ordering Dr: Konstantin Jarquin MD STUDY: X-RAY CHEST REASON FOR EXAM: Male, 32 years old. Chest pain TECHNIQUE: AP portable COMPARISON: June 16, 2016 FINDINGS: The lungs are clear and expanded. There is no demonstrated pleural abnormality. Normal size heart. Normal mediastinum and bronson. Normal visualized pulmonary arteries. Normal visualized aortic arch and descending thoracic aorta. Normal visualized thoracic spine. Normal visualized ribs, clavicles, and shoulders. There is no demonstrated abnormality of the visualized soft tissue structures of the upper abdomen. No change since previous study RAD/Chest 1 View (Portable) IMPRESSION: Normal x-ray examination of the chest. Electronically Signed: Dallin Chopra MD at 19:38 EST , Service support , CC: Lionel Marsh MD; Konstantin Jarquin MD Seed Sales Manager: Signed CBC W/DIFF, AUTOMATED Collected: 05/24/2018 Status: F Source: [facility] 6:25 PM [facility] REPOSITORY TYPE CODE TESTS RESULT OUT OF RANGE REFERENCE UNITS LAB L100.1000 4.4-11.0 K/mm3 Normal WBC 5.4 LAB L100.1200 4.6-6.2 M/mm3 Normal RBC 4.98 LAB L100.1300 13.0-16.5 g/dl Normal HGB 15.1 LAB L100.1400 40-54 % Normal HCT 45.2 LAB L100.1500 80-94 fL Normal MCV 90.8 LAB L100.1600 27.0-32.0 pg Normal MCH 30.3 LAB L100.1700 32-36 g/gl Normal MCHC 33.4 LAB L100.1810 11.6-14.6 % Normal RDW CV 13.3 LAB L100.1820 35.1-43.9 fl Normal RDW SD 43.4 LAB L100.1900 150-450 K/mm3 Normal PLT 268 LAB L100.2000 6.2-12.0 fl Normal MPV 10.3 LAB L100.2100 47-70 % Normal NEUT% 56.7 LAB L100.2200 19-41 % Normal LY% 34.0 LAB L100.2300 0-10 % Normal MONO% 7.2 LAB L100.2400 0-5 % Normal EO% 1.7 LAB L100.2500 0-1 % Normal BASO% 0.4 LAB L100.2550 0.0-0.9 % Normal IM GRAN % 0.000 Result Comment: IG% - Immature Granulocytes (promyelocytes, myelocytes and metamyelocytes) > 1% indicates that a LEFT SHIFT is Present. LAB L100.2620 2.0-7.7 X10 3/uL Normal Absolute Neut 3.1 LAB L100.2720 0.83-4.51 X10 3/ul Normal Absolute Lymph 1.84 Performed By: #### L100.0100 #### [facility] [address] [place], [place], [address] BASIC METABOLIC Collected: 05/24/2018 Status: F Source: [place] PROFILE (BMP) 6:25 PM [facility] REPOSITORY TYPE CODE TESTS RESULT OUT OF RANGE REFERENCE UNITS LAB L501.0100 74-106 mg/dL Normal GLU 76 Result Comment: Please note revised GLUCOSE reference range effective 2017. LAB L501.1000 7-18 mg/dL Normal BUN 16 LAB L501.1100 0.70-1.30 mg/dL Normal CREAT,SERUM 0.96 Result Comment: The validity of the calculated GFR AND GFRAA in patients over 70 years has not been determined. Clinical correlation is essential. LAB L501.1110 >60 mL/min Normal EST GFR 95 Result Comment: Non- GFR Calc LAB L501.1115 >60 mL/min Normal EST GFR - AA 115 Result Comment: GFR Calc LAB L501.1255 ml/min Normal Estimated CRCL 119.00 LAB L501.1300 10-20 RATIO BUN/CRE Normal 16.7 LAB L501.2200 8.5-10 mg/dL .1 CA Normal 9.2 LAB L501.5300 136-14 mmol/L 5 NA Normal 138 LAB L501.5600 3.5-5. mmol/L 1 K Normal 3.8 LAB L501.5900 98-107 mmol/L CL Normal 101 LAB L501.6100 21.0-3 mmol/L 2.0 CO2 Normal 29.0 LAB L501.6200 5-15 GAP Normal 8 Performed By: #### L500.2500, L501.4010 #### [facility] [address] [place], [address] TROPONIN-I Collected: 05/24/2018 Status: F Source: [place] [facility] TYPE CODE TESTS RESULT OUT OF RANGE REFERENCE UNITS LAB L501.4010 <0.045 ng/mL Normal < 0.015 TROPONIN-I Result Comment: TROPONIN-I EXPECTED VALUES <0.045 Negative 0.045 - 0.590 Consistent with Cardiac Damage > OR = 0.600 Critical Value Not every elevated troponin is indicative of NE. These values should be used with clinical judgement in examining the patient's clinical picture for diagnosis. To establish a diagnosis of NE versus myocardial injury, there must be a demonstrated rise and/or fall in the troponin values, in addition to ischemic symptoms, EKG changes, new regional wall motion abnormality, and/or angiographical evidence. PLEASE NOTE: REFERENCE RANGES EDITED 17 Performed By: #### L500.2500, L501.4010 #### [facility] [address] [place], [address] ALLERGIES ALLERGIES DATE TYPE / CODE NAME / CODE REACTION SEVERITY SOURCE 06/08/2018 Drug No Known Unknown [facility] Allergy/4160 Allergies/F00 Hospital 81252(SNOMED [id number](RXNOR Repository CT) M) ENCOUNTERS ENCOUNTERS ADMIT/DISCHARGE ACCOUNT ADMITTING ENCOUNTER LOCATION SOURCE NUMBER CLASS 06/20/2018 [id number] Ambulatory BMSBuilding:B [place] 3 [place].CF.Man [facility] Repository 06/20/2018 [id number] Ambulatory [place] [address] [facility] ing:[facility] Repository 06/08/2018/ [id number] Ambulatory BMSBuilding:B [place] 8 8 MS.Man [facility] Repository 06/07/2018 [id number] Ambulatory BMSBuilding:B [place] 9 MS.Man [facility] Repository 05/24/2018/ [id number] Emergency [facility] [address] [facility] ing:ED Repository PAYERS PAYERS ENCOUNTER GUARANTOR PAYER SUBSCRIBER SOURCE 06/20/2018 OTIS Eastman Primary Insurance:[facility] MARY KAY [id number] [facility] RE[facility]OLD[facility]: [facility] [id number] Number: Repository [id number]: [phone] [id number] [phone] (HP) Date:0862-87-33[address] [address], [place] [address]BO: CHECK WEBSITE 06/20/2018 Secondary NOT GIVENUNK [place] Insurance:SELF PAY [facility] Number: Effective Repository Date:2018-06-20 06/20/2018 OTIS W Primary Insurance:[facility] MARY KAY [id number] [employer] REYNOLDSDOB: [facility] [id number] Number: Repository [address]Clh: 330 [id number] [phone] (HP) Date:5013-02-40MO [address] [address], [place] [address]KW: CHECK WEBSITE 06/20/2018 Secondary NOT GIVENUNK [place] Insurance:SELF PAY [facility] Number: Effective Repository Date:2018-06-08 06/08/2018 OTIS Eastman Primary Insurance:[facility] MARY KAY Figueroa [id number] [facility] REYNOLD[facility]OB: [facility] [id number], [place] Number: Repository [address]Kwk: 330 [id number] [phone] () Date:8013-51-56UE [address] [address], [place] [address]MB: CHECK WEBSITE 06/08/2018 Secondary NOT GIVENUNK [place] Insurance:SELF PAY [facility] Number: Effective Repository Date:2018-05-26 06/07/2018 OTIS W Primary Insurance:[facility] MARY KAY Figueroa [id number] [employer] REYNOLDSDOB: [facility] 5890[place]05-[place], [place] Number: Repository [address]Lya: 330 [id number] [phone] () Date:3232-10-28OM [address] [address], [place] [address]KK: CHECK WEBSITE 06/07/2018 Secondary NOT GIVENUNK [place] Insurance:SELF PAY [facility] Number: Effective Repository Date:2018-06-07 05/24/2018 OTIS W Primary Insurance:[facility] MARY KAY Figueroa [id number] [employer] REYNOLDSDOB: [facility] [id number], [place] Number: Repository [address]Fwa: [phone] [id number] [phone] () Date:0289-92-15XQ [address] [address], [place] [address]W[place]: CHECK WEBSITE 05/24/2018 Secondary NOT GIVENUNK [place] Insurance:[facility]LF [facility]Y [facility]: Effective Repository Date:2018-05-24
--- OUTSIDE RECORDS SUMMARY | 2018-08-13 15:58 | XMS RPT_ITS | Clinical Summary ---
:1985 Author Organization [place] [facility] Address [address] [place] [address] Phone Care Team Providers Name Role Phone Juan Carlos Interiano Unavailable Conditions or Problems Problem Name Problem Onset Status Entry Provider Comment Standard Annotate Code Date Date Description Abdominal 17772080 Active Juan Carlos Barton Abdominal pain pain (SNOMED 08/09 08/[address]) Mononucleosis 887768912 Active Roberto D Infectious , infectious (SNOMED 10/20 10/[address]) Fatigue 12287966 Active Roberto D Fatigue (SNOMED 10/20 10/[address]) Abdominal 100944716 Active Arely Lora Acute abdominal pain, acute (SNOMED 10/20 10/[address]) 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 091690036 Active Ameena Tineo Right lower pain, right (SNOMED 03/05 03/05 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 lower CT) quadrant Leukopenia, 07961462 Active Sukh A Leukopenia mild (SNOMED 02/06 02/[address]) DO Muscle strain 98845368 Inactive Sukh A Muscle strain (SNOMED 02/06 02/[address]) DO Muscle spasm 70763439 Active Sukh A Cramp (SNOMED 01/30 01/[address]) DO Numbness 26034938 Active Sukh A Numbness parethesias (SNOMED 01/30 01/[address]) DO Generalized 67205594 Active Sukh A Generalized anxiety (SNOMED 12/03 12/[address]) DO disorder Mass of 867274454 Active Sukh A Mass of thoracic (SNOMED 12/03 12/03 [facility] thoracic structure CT) DO structure Pharyngitis, 652711845 Resolved Sukh A Acute acute (SNOMED 08/12 09/[address]) DO Conjunctiviti 5176214 Active Sukh A Conjunctivitis s (SNOMED 10/30 10/[address]) DO Palpitations 26856963 Active Sukh A Palpitations (SNOMED 10/30 10/[address]) DO Chest pain, 088074974 Active Sukh A Atypical chest atypical (SNOMED 10/30 10/[address]) DO Pharyngitis, 429875660 Removed Beatriz A Acute acute (SNOMED 08/12 09/15 Malys, DO pharyngitis CT) Medications Medication Instructions Start Stop Generic Name NDC Provider Date Date LORAZEPAM 1 MG 1/2-1 tablet by LORAZEPAM 21253812484 Sukh A TABS mouth daily as 8 Maximo DO needed for anxiety OLOPATADINE HCL One drop in each OLOPATADINE 94264162471 Sukh A 0.1 % SOLN eye daily 5 HCL Maximo DO LIDOCAINE 1-2 ml po every LIDOCAINE HCL 03170089380 Beatriz A VISCOUS 2 % 4-6 hours as 5 Malys, DO SOLN needed for sore throat AMOXICILLIN 875 1 po Twice daily AMOXICILLIN 80196015441 Beatriz A MG TABS x 7 days 5 Malys, DO AMOXICILLIN 875 1 po Twice daily / AMOXICILLIN 35752142321 Sukh A MG TABS x 7 days 5 14 Maximo DO LIDOCAINE 1-2 ml po every / LIDOCAINE HCL 09684229063 Sukh A VISCOUS 2 % 4-6 hours as 5 14 Maximo DO SOLN needed for sore throat OLOPATADINE HCL One drop in each / OLOPATADINE 08921213040 Sukh A 0.1 % SOLN eye daily 5 15 HCL Maximo DO LORAZEPAM 1 MG 1/2-1 tablet by / LORAZEPAM 29671043280 Sukh A TABS mouth daily as 8 [...] INTERVAL new path ms QT interval, electrocardiogram ID INTERVAL 148 ms ID interval, electrocardiogram EKGHRTRATE 48 BPM heart rate [...] NHIS SMOK STATUS Never smoker Tobacco use [facility] Plan of Care Type Date Detail Referral ENT referral [place], [address] [place] [address], [address] Referral ENT referral [place], [address] [place] [address], [address] Pending order *TROP - Troponin I Pending [...] Procedures Code Procedure Name Date Entry Date CPT-34554 Monospot (Office) 76139-6 *CBC without Diff 43031-1 *TROP - Troponin I CPT-53468 EKG (In office) 0184-1 *CBC with Differential 0786-1 *CMP Complete Metabolic Panel 23819-1 *CRP - C-Reative Protein 2132-9 *B-12 2284-8 *FOLS Folates-Folic Acid, Serum 59514-7 *Magnesium 3016-3 *TSH 91395-5 *Sedimentation Rate (ESR) 2157-6 *Creatine Kinase (CK) 5685-3 *MERB Quantitative Mercury 0270-1 *LARISA CPT-86267 CT Thoracic Spine with Contrast CPT-27211 MRI Thoracic Spine with Contrast 0184-1 *CBC with Differential 10373-3 *CRP - C-Reative Protein 10183-2 *Sedimentation Rate (ESR) 0173-1 *CKMB - CK-MB Quantitative & REL Index 0786-1 *CMP Complete Metabolic Panel 0270-1 *LARISA CPT-75210 X-Ray, Chest, PA & Lateral Vital Signs [...]
== END ==
PROVIDERS: Family Provider Family Medicine; PCP Family Medicine; Referring Provider Internal Medicine Cardiovascular Disease; Visit Provider Internal Medicine Cardiovascular Disease
DX: R07.89 Other chest pain (principal)
CPT/HCPCS: 93017; 93350

== ENCOUNTER → 2018-08-03 10:07 | Outpatient (CLI) | payer OTHER, SELFPAY ==
[2018-06-08 14:47] VITALS: BMI 31.1
--- NOTE | 2018-08-03 10:10 | US_ITS ---
STUDY: ABDOMINAL ULTRASOUND - RIGHT UPPER QUADRANT REASON FOR VISIT: Male, 33 years old. Fatty liver TECHNIQUE: Ultrasound evaluation of the right upper quadrant was performed with real-time and static whitlock-scale imaging. TECHNICAL QUALITY: Adequate. COMPARISON: None. FINDINGS: Liver: The liver measures 16.1 cm. There is increased echogenicity consistent with fatty infiltration. The bile ducts are within normal limits. There is hepatic color flow. The direction of portal flow is hepatopetal. There is no demonstrated mass lesion. Gallbladder: Normal distended gallbladder. The gallbladder wall measures 3 mm. There is a negative sonographic Calderón's sign. There is no pericholecystic fluid. There are no gallstones. Common Bile Duct (C.B.D.): The common bile duct measures 3 mm. Pancreas: There is nonvisualization of the pancreas. Right Kidney: Normal size of the right kidney. The right kidney measures 11.8 x 5.1 x 6.1 cm. Normal renal cortex. The right cortex measures 1.6 cm. There is no demonstrated renal mass or cyst. There is no right hydronephrosis. US/Abdomen Limited IMPRESSION: Diffusely increased hepatic echogenicity suggestive of steatosis. The pancreas was not visualized. The remainder of the study is unremarkable. Electronically Signed: Fredy Burgess MD at 22:26 EST , Service support ,
--- OUTSIDE RECORDS SUMMARY | 2018-10-08 04:01 | XMS RPT_ITS ---
:1985 Author Organization [facility] Care Team Providers Name Role Phone Sukh Marsh Attending Unavailable Sukh Marsh Referring Unavailable Sukh Marsh Primary Care Unavailable Lionel Marsh Primary Care Unavailable Konstantin Jarquin Attending Unavailable Tresa Miller Attending Unavailable Beata, Dipak Attending Unavailable Sukh Marsh Referring Unavailable Beata, [place] Attending Unavailable Beata, Dipak Referring Unavailable Lionel Marsh Primary Care Unavailable Beata, Dipak Attending Unavailable Beata, Dipak Referring Unavailable Lionel Marsh Primary Care Unavailable Beata, [place] Consulting Unavailable PROBLEMS PROBLEMS DATE TYPE CONDITION / CODE ATTENDING STATUS SOURCE 06/20/2018 Unknown R07.89 - Other Beata, Dipak Active [facility] chest pain / Community R07.89(ICD-10) Hospital Repository PROCEDURES PROCEDURES No Procedure Records FoundRESULTS RESULTS ABDOMEN LIMITED Observed: 08/03/2018 Status: F Source: [facility] 10:11 AM [facility] REPOSITORY [facility] Imaging Services [address] [address] Abdomen Limited MR#: [id number] Acct: [id number] Name: OTIS GEE Rep #: [id number] : 1985 M 33 From: Fredy Burgess MD PCP: Sukh Marsh DO Status: REG CLI Study: Abdomen Limited Date of Exam: 08/03/18 Exam# [id number] Ordering Dr: Sukh Marsh DO STUDY: ABDOMINAL ULTRASOUND - RIGHT UPPER QUADRANT REASON FOR VISIT: Male, 33 years old. Fatty liver TECHNIQUE: Ultrasound evaluation of the right upper quadrant was performed with real-time and static whitlock-scale imaging. TECHNICAL QUALITY: Adequate. COMPARISON: None. FINDINGS: Liver: The liver measures 16.1 cm. There is increased echogenicity consistent with fatty infiltration. The bile ducts are within normal limits. There is hepatic color flow. The direction of portal flow is hepatopetal. There is no demonstrated mass lesion. Gallbladder: Normal distended gallbladder. The gallbladder wall measures 3 mm. There is a negative sonographic Calderón's sign. There is no pericholecystic fluid. There are no gallstones. Common Bile Duct (C.B.D.): The common bile duct measures 3 mm. Pancreas: There is nonvisualization of the pancreas. Right Kidney: Normal size of the right kidney. The right kidney measures 11.8 x 5.1 x 6.1 cm. Normal renal cortex. The right cortex measures 1.6 cm. There is no demonstrated renal mass or cyst. There is no right hydronephrosis. US/Abdomen Limited IMPRESSION: Diffusely increased hepatic echogenicity suggestive of steatosis. The pancreas was not visualized. The remainder of the study is unremarkable. Electronically Signed: Fredy Burgess MD at 22:26 EST , Service support , CC: Sukh Marsh DO Safety Belt Installer: Signed STRESS TEST ECHO W/O Observed: 06/20/2018 Status: F Source: [facility] CONTRAST 12:45 PM [facility] REPOSITORY [facility] Cardiovascular Services [address] [place] [address] Stress Test Echo w/o Contrast MR#: [id number] Acct: [id number] Name: OTIS GEE Rep #: [id number] : 1985 33 From: Dipak Cota MD Primary Care: Sukh Marsh DO Status: REG CLI Ordering Dr: Dipak Cota MD Sex: M C Reason For Study: [...] fraction. Excellent functional capacity. Ordering Physician: Dipak Cota MD Referring Physician: Dipak Cota Performed By: Raya Moy RDCS 06/20/18 1245 Date Dipak Cota MD CC: Dipak Cota MD; Sukh Marsh DO; Lionel Marsh MD Date Dictated: 06/20/18 1101 Date Transcribed: 06/20/18 1245 Safety Belt Installer: Signed CARDIOLOGY VISIT Observed: 06/08/2018 Status: F Source: [facility] REPORT 3:52 PM [facility] REPOSITORY [facility] [address] [place] [address] OFFICE VISIT Date of Service: 06/08/18 MR#: [id number] Acct: [id number] Name: OTIS GEE Rep #: [id number] : 1985 Provider: Dipak Cota MD Age/Sex: 33/M [place] [facility] [place] Signed HPI HPI Chief Complaint: Initial [...] No Known Allergies Allergy (Verified 06/08/18 14:35) [facility], [facility] Medical History Anxiety (Chronic) Obesity (Chronic) Family [...] R07.89 06/08/18 1552 <Electronically signed by Dipak Cota MD> Date Dipak Cota MD Cosigner Signature: Date (if applicable) CC: Sukh Marsh DO 12 LEAD ELECTROCARDIOGRAM Observed: 05/26/2018 Status: F Source: [facility] 3:17 PM [facility] REPOSITORY [facility] Cardiovascular Services [address] [place] [address] 12 Lead EKG 05/24/18 1825 MR#: [id number] Acct: [id number] Name: OTIS GEE Rep #: [id number] : 1985 32 From: Diapk Cota MD Attending Dr: Status: DEP ER Ordering [...] sinus rhythm Normal ECG Confirmed by DIPAK COTA MD ([id number]), multimedia editor MAGALI CYR ([id number]) on 05/26/2018 3:17:24 PM Referred By: DR JARQUIN Confirmed By:DIPAK COTA MD 05/26/18 1517 Date Dipak Cota MD CC: Lionel Marsh MD; Konstantin Jarquin MD Signed EMERGENCY DEPARTMENT Observed: 05/24/2018 Status: F Source: [place] SUMMARY 8:56 PM [facility] REPOSITORY [facility] Medical Records Department [address] [place] [address] Emergency Department Summary 05/24/183 MR#: [id number] Acct: [id number] Name: OTIS GEE Rep #: [id number] : 1985 32 From: Konstantin Jarquin MD [...] unknown etiology This note was generated with [employer] dictation software. It may contain incorrect words, [...] your Primary Care Provider. Call [facility] ([phone]) or report to the closest Emergency Room. Call 911 if necessary. 05/24/182055 <Electronically signed by Konstantin Jarquin MD> Date Konstantin Jarquin MD Cosigner Signature (If Indicated): Date CC: Lionel Marsh MD CHEST 1 VIEW Observed: 05/24/2018 Status: F Source: [facility] (PORTABLE) 7:14 PM [facility] REPOSITORY [facility] Imaging Services [address] [place] [address] Chest 1 View (Portable) MR#: [id number] Acct: [id number] Name: OTIS GEE Rep #: [id number] : 1985 M 32 From: Dallin Chopra MD PCP: Lionel Marsh MD Status: PRE ER Study: Chest 1 View (Portable) Date of Exam: 05/24/18 Exam# [id number] Ordering Dr: Konstantin Jarquin MD STUDY: X-RAY [...] CC: Lionel Marsh MD; Konstantin Jarquin MD Safety Belt Installer: Signed CBC W/DIFF, AUTOMATED Collected: 05/24/2018 Status: F Source: [facility] 6:25 PM [facility] REPOSITORY TYPE CODE TESTS RESULT OUT OF [...] Lymph 1.84 Performed By: #### L100.0100 #### [facility] [address] [place], [address] BASIC METABOLIC Collected: 05/24/2018 Status: F Source: [facility] PROFILE ([facility]) 6:25 PM [facility] REPOSITORY TYPE CODE TESTS RESULT OUT OF [...] 8 Performed By: #### L500.2500, L501.4010 #### [facility] [address] [place], [address] TROPONIN-I Collected: 05/24/2018 Status: F Source: [facility] 6:25 PM [facility] REPOSITORY TYPE CODE TESTS RESULT OUT OF RANGE REFERENCE UNITS LAB L501.4010 <0.045 ng/mL Normal < 0.015 TROPONIN-I Result Comment: TROPONIN-I EXPECTED VALUES <0.045 Negative 0.045 - 0.590 Consistent with Cardiac Damage > OR = 0.600 Critical Value Not every elevated troponin is indicative of PR. These values should be used with clinical judgement in examining the patient's clinical picture for diagnosis. To establish a diagnosis of PR versus myocardial injury, there must be a demonstrated rise and/or fall in the troponin values, in addition to ischemic symptoms, EKG changes, new regional wall motion abnormality, and/or angiographical evidence. PLEASE NOTE: REFERENCE RANGES EDITED 17 Performed By: #### L500.2500, L501.4010 #### [facility] [address] [place], [address] ALLERGIES ALLERGIES DATE TYPE / CODE NAME / CODE REACTION SEVERITY SOURCE 06/08/2018 Drug No Known Unknown [facility] Allergy/4160 Allergies/F00 Hospital 80896(SNOMED 6077922(RXNOR Repository CT) M) ENCOUNTERS ENCOUNTERS ADMIT/DISCHARGE ACCOUNT ADMITTING ENCOUNTER LOCATION SOURCE NUMBER CLASS 08/03/2018 [id number] Ambulatory [facility] [place] 1 [facility] ing:US Repository 06/20/2018 [id number] Ambulatory BMS[facility]:B [facility] 3 [facility] Rep[facility] 06/20/2018 [id number] Ambulatory [place] [facility] ing:[facility] Repository 06/08/2018/ [id number] Ambulatory BMSBuilding:B [facility] 8 [facility] Repository 06/07/2018 [id number] Ambulatory BMSBuilding:B [facility] [facility] Repository 05/24/2018/ [id number] Emergency [facility] 8 5 [facility] ing:ED Repository PAYERS PAYERS ENCOUNTER GUARANTOR PAYER SUBSCRIBER SOURCE 08/03/2018 OTIS Eastman Primary Insurance:[facility] KAY Figueroa [id number] [facility] [address] Number: Repository [id number]: 330 [id number] [phone] () Date:2649-51-10[address] [address], [place] [address]PB: CHECK WEBSITE 08/03/2018 Secondary NOT GIVENUNK [place] Insurance:SELF PAY [facility] Number: Effective Repository Date:2018-07-29 06/20/2018 OTIS Eastman Primary Insurance:[facility] MARY KAY Figueroa [id number] [facility]: [address] Number: Repository [id number]: 330 [id number] [phone] () Date:7939-87-00[address] [address], [place] [address]DP: CHECK WEBSITE 06/20/2018 Secondary NOT GIVENUNK [place] Insurance:SELF PAY [facility] Number: Effective Repository Date:2018-06-20 06/20/2018 OTIS Eastman Primary Insurance:[facility] MARY KAY Figueroa [id number] [facility]: [address] Number: Repository [address]Lgz: 330 [id number] [phone] () Date:9800-36-26CE [address] [address], [place] [address]QZ: CHECK WEBSITE 06/20/2018 Secondary NOT GIVENUNK [place] Insurance:SELF PAY [facility] Number: Effective Repository Date:2018-06-08 06/08/2018 OTIS Eastman Primary Insurance:[facility] MARY KAY Figueroa [id number] [facility]: [address] Number: Repository [phone]: 330) [id number] [phone] (HP) Date:4610-29-55[address] [address], [place] [address]PS: CHECK WEBSITE 06/08/2018 Secondary NOT GIVENUNK [place] Insurance:SELF PAY [facility] Number: Effective Repository Date:2018-05-26 06/07/2018 OTIS Eastman Primary Insurance:[facility] MARY KAY [id number] [facility]: [address] Number: Repository [address]Ohh: 330 [id number] [phone] () Date:8818-23-12TC [address] [address], [place] [address]HM: CHECK WEBSITE 06/07/2018 Secondary NOT GIVENUNK [place] Insurance:SELF PAY [facility] Number: Effective Repository Date:2018-06-07 05/24/2018 OTIS Eastman Primary Insurance:[facility] MARY KAY Figueroa [id number] [facility] RE[facility]OLDSD[facility]: [address], [place] Number: Repository [id number]: 330 [id number] [phone] () Date:3604-57-28IM [address] [address], [place] [address]ZH: CHECK WEBSITE 05/24/2018 Secondary NOT GIVENUNK [place] Insurance:SELF PAY [facility] Number: Effective Repository Date:2018-05-24
== END ==
PROVIDERS: Family Provider Family Medicine; PCP Family Medicine; Referring Provider Family Medicine; Visit Provider Family Medicine
DX: R10.11 Right upper quadrant pain (principal)
CPT/HCPCS: 76705

== ENCOUNTER 2018-08-15 12:15 | Outpatient (RCR) | payer OTHER, SELFPAY ==
[2018-06-08 14:47] VITALS: BMI 31.1
--- NOTE | 2018-08-15 13:23 | MASS.EVAL ---
Massage Therapy Evaluation: Initial Evaluation Date: 08/15/2018 /Age: 11 1985, 33 Diagnosis: Cervicalgia Low back pain Medications: None Goals: Decrease muscle tension Decrease occurance of pinched cervical nerves Plan: To be seen one time per month or PRN for a total of 10 visits
--- NOTE | 2019-06-28 11:23 | MASS.DISCH ---
Massage Therapy Discharge Summary: Initial Evaluation Date: 08/15/2018 Diagnosis: Cervicalgia No. of Visits: Date of last visit: 08/15/2018 Goals: Insufficient visits to meet goals This patient is being discharged from our care at the [facility]. Thank you, Milli Spivey LMT
== END 2018-08-15 19:00 | disposition home or self-care (01) ==
LOC: MASS 12:15
PROVIDERS: Family Provider Family Medicine; PCP Family Medicine; Referring Provider Family Medicine; Visit Provider Family Medicine
DX: M54.5 Low back pain (principal); M54.2 Cervicalgia; V89.2XXA Person injured in unspecified motor-vehicle accident, traffic, initial encounter
CPT/HCPCS: 97124

== ENCOUNTER → 2018-09-13 11:46 | Outpatient (CLI) | payer OTHER, SELFPAY ==
[2018-06-08 14:47] VITALS: BMI 31.1
[2018-09-13 11:48] LABS: Bacteria 0 SEEN /hpf (None Seen); Mucous, Urine 0 SEEN /hpf (<or=2+); Red Blood Cells-Urine 0 SEEN /hpf (0-5); Squamous Epithelial Cells - UA 0 SEEN /hpf (0-5); White Blood Cells 0 SEEN /hpf (0-5)
[2018-09-13 15:31] LABS: Absolute Lymphocyte Count 1.18 X10^3/ul (0.83-4.51); Absolute Neutrophil Count 2.5 X10^3/uL (2.0-7.7); Basophil# 0.01 X10^3/uL; Basophil% 0.2 % (0-1); Eosinophil# 0.07 X10^3/uL; Eosinophils% 1.7 % (0-5); Hemoglobin 14.6 g/dl (13.0-16.5); Lymphocyte # 1.18 X10^3/ul (4.0); Lymphocyte % 28.8 % (19-41); Mean Corp Hgb Conc 33.2 g/gl (32-36); Mean Corpuscular Volume 90.5 fL (80-94); Mean Platelet Vol. 10.6 fl (6.2-12.0); Monocyte# 0.39 X10^3/uL; Monocyte% 9.5 % (0-10); Neutrophil # 2.45 X10^3/uL (2.7-7.7); Neutrophil % 59.8 % (47-70); Platelet Count 275 K/mm3 (150-450); RBC Distribution Width CV 13.7 % (11.6-14.6); RBC Distribution Width SD 45.1 fl (35.1-43.9); Red Blood Count 4.86 M/mm3 (4.6-6.2); White Blood Count 4.1 K/mm3 (4.4-11.0)
[2018-09-13 15:32] LABS: Color, Urine Yellow (Yellow); Glucose, Dipstick Normal (Normal); Ketone-Dipstick Negative (Negative); Leukocyte Esterase-Dipstick Negative /ul (Negative); Nitrite-Dipstick Negative (Negative); Occult Blood-Urine Negative /ul (Negative); Protein-Dipstick Negative (Negative); Urine Bilirubin Dipstick Negative (Negative); Urine Clarity Clear (Clear); Urine Urobilinogen Normal (Normal); Urine pH 6.5 (5.0 - 8.0)
[2018-09-13 15:55] LABS: POSITIVE COUNT NO; POSITIVE DIFFERENTIAL NO; POSITIVE MORPHOLOGY NO
[2018-09-13 15:58] LABS: ALB/GLOB Ratio 1.3 RATIO (0.9-2.4); AST(SGOT) 17 U/L (15-37); Alanine Aminotransfer ALT/SGPT 39 U/L (16-61); Albumin, Serum 4.3 g/dL (3.2-5.0); Alkaline Phosphatase 67 U/L (45-117); Anion Gap 10 (5-15); BUN 15 mg/dL (7-18); BUN/Creat Ratio 16.1 RATIO (10-20); CRP < 2.90 mg/L (0.0-3.0); Calcium,Total 9.2 mg/dL (8.5-10.1); Chloride 102 mmol/L (98-107); Creatinine, Serum 0.93 mg/dL (0.70-1.30); EST Glomerular Filtration Rate 98 mL/min (>60); Est Glom Filt Rate - Afr Amer 118 mL/min (>60); Globulin 3.4 g/dL (2.2-4.2); Glucose 83 mg/dL (74-106); Protein, Total 7.7 g/dL (6.4-8.2); Sodium Level 140 mmol/L (136-145)
[2018-09-13 16:05] LABS: Erythrocyte Sedimentation Rate 3 mm/hr (0-15)
== END ==
PROVIDERS: Family Provider Family Medicine; PCP Family Medicine; Visit Provider Family Medicine
DX: R10.9 Unspecified abdominal pain (principal); R14.0 Abdominal distension (gaseous); K75.81 Nonalcoholic steatohepatitis (NASH); R11.0 Nausea
CPT/HCPCS: 36415; 80053; 81001; 85025; 85652; 86140; 87086; 87088

== ENCOUNTER → 2019-08-17 13:09 | Outpatient (CLI) | payer OTHER, SELFPAY ==
[2018-06-08 14:47] VITALS: BMI 31.1
[2019-08-17 13:43] LABS: Absolute Lymphocyte Count 1.42 X10^3/uL (0.83-4.51); Absolute Neutrophil Count 2.9 X10^3/uL (2.0-7.7); Basophil# 0.02 X10^3/uL; Basophil% 0.4 % (0-1); Eosinophil# 0.06 X10^3/uL; Eosinophils% 1.3 % (0-5); Hematocrit 45.9 % (40-54); Hemoglobin 15.3 g/dL (13.0-16.5); Lymphocyte # 1.42 X10^3/ul (4.0); Mean Corp Hgb Conc 33.3 g/dL (32-36); Mean Corpuscular Hgb 30.1 pg (27.0-32.0); Mean Corpuscular Volume 90.2 fL (80-94); Mean Platelet Vol. 10.1 fl (6.2-12.0); Monocyte# 0.38 X10^3/uL; NRBC Flagged by Analyzer 0 % (0-5); Neutrophil # 2.85 X10^3/uL (2.7-7.7); Neutrophil % 60.1 % (47-70); Platelet Count 253 K/mm3 (150-450); RBC Distribution Width CV 13.2 % (11.6-14.6); RBC Distribution Width SD 43.7 fl (35.1-43.9); Red Blood Count 5.09 M/mm3 (4.6-6.2); White Blood Count 4.7 K/mm3 (4.4-11.0)
[2019-08-17 14:05] LABS: ALB/GLOB Ratio 1.1 RATIO (0.9-2.4); AST(SGOT) 14 U/L (15-37); Alanine Aminotransfer ALT/SGPT 34 U/L (16-61); Albumin, Serum 4.1 g/dL (3.2-5.0); Alkaline Phosphatase 80 U/L (45-117); Anion Gap 4 (5-15); BUN 14 mg/dL (7-18); BUN/Creat Ratio 14.4 RATIO (10-20); Calcium,Total 9.4 mg/dL (8.5-10.1); Chloride 102 mmol/L (98-107); Cholesterol 247 mg/dL (200); Creatinine, Serum 0.97 mg/dL (0.70-1.30); EST Glomerular Filtration Rate 93 mL/min (>60); Est Glom Filt Rate - Afr Amer 112 mL/min (>60); Globulin 3.6 g/dL (2.2-4.2); Glucose 91 mg/dL (74-106); High Density Lipoprotein 54 mg/dL; Potassium 4.2 mmol/L (3.5-5.1); Protein, Total 7.7 g/dL (6.4-8.2); Sodium Level 136 mmol/L (136-145); Triglycerides 128 mg/dL; Very Low Density Lipoprotein 26 mg/dL (5-40)
== END ==
PROVIDERS: PCP Family Medicine; Referring Provider Family Medicine; Visit Provider Family Medicine
DX: Z00.00 Encounter for general adult medical examination without abnormal findings (principal); K75.81 Nonalcoholic steatohepatitis (NASH); D72.819 Decreased white blood cell count, unspecified
CPT/HCPCS: 36415; 80053; 80061; 85025

== ENCOUNTER → 2019-08-24 13:20 | Outpatient (CLI) | payer OTHER, SELFPAY ==
[2018-06-08 14:47] VITALS: BMI 31.1
--- NOTE | 2019-08-24 13:31 | MRI_ITS ---
STUDY: MRI BRAIN WITH AND WITHOUT CONTRAST REASON FOR EXAM: Male, 34 years old. headache,dizziness,fatigue; r/o ms TECHNIQUE: Standardized multiplanar fat and water weighted pulse sequences were obtained. IV DOTAREM 20ML was administered for the contrast portion of the examination. COMPARISON: None. FINDINGS: Normal size of the ventricles and extra-axial spaces for the patient''s age. Normal white matter tracts of the supratentorial brain. There is no evidence for recent intracranial ischemia or other cause of cytotoxic edema on diffusion weighted imaging (DWI). There are no demyelinating plagues of the supratentorial brain, brainstem or cerebellum. There are no findings suspicious for multiple sclerosis (MS). Normal bilateral basal ganglia. Normal thalami. There is no extra-axial fluid accumulation. Normal flow voids within the major intracranial circulation suggesting patency by spin echo criteria. Normal venous enhancement. There is no enhancing intra-axial or extra-axial abnormality. Normal sella turcica, pituitary gland, infundibular stalk, optic chiasm and hypothalamus. Normal tectal plate and pineal gland. Normal midbrain, romario and medulla. Normal cerebellum. Normal basal cisterns. Normal bilateral temporal bones. Normal bilateral internal auditory canals. No demonstrated orbital abnormality, within the constraints of a routine brain study. Normal visualized paranasal sinuses. Normal calvarium and skull base. Normal visualized soft tissue structures. Normal visualized upper cervical spine. MRI/Brain W/WO Contrast IMPRESSION: 1. Normal unenhanced and enhanced MRI of the brain. 2. No demyelinating process. Electronically Signed: Morales Orellana DO at 16:28 EST Tel , Service support ,
== END ==
PROVIDERS: PCP Family Medicine; Referring Provider Family Medicine; Visit Provider Family Medicine
DX: R51 Headache (principal); R42 Dizziness and giddiness; R53.83 Other fatigue
CPT/HCPCS: 70553; A9575

== ENCOUNTER → 2019-11-17 10:27 | Outpatient (CLI) | payer OTHER, SELFPAY ==
[2018-06-08 14:47] VITALS: BMI 31.1
[2019-11-17 12:54] LABS: Absolute Lymphocyte Count 1.31 X10^3/uL (0.83-4.51); Absolute Neutrophil Count 2.2 X10^3/uL (2.0-7.7); Basophil# 0.02 X10^3/uL; Basophil% 0.5 % (0-1); Eosinophil# 0.06 X10^3/uL; Eosinophils% 1.5 % (0-5); Hematocrit 42.8 % (40-54); Hemoglobin 14.4 g/dL (13.0-16.5); Lymphocyte # 1.31 X10^3/ul (4.0); Lymphocyte % 33.7 % (19-41); Mean Corp Hgb Conc 33.6 g/dL (32-36); Mean Corpuscular Hgb 29.9 pg (27.0-32.0); Mean Corpuscular Volume 88.8 fL (80-94); Mean Platelet Vol. 10.3 fl (6.2-12.0); Monocyte# 0.34 X10^3/uL; Monocyte% 8.7 % (0-10); NRBC Flagged by Analyzer 0 % (0-5); Neutrophil # 2.15 X10^3/uL (2.7-7.7); Neutrophil % 55.3 % (47-70); Platelet Count 243 K/mm3 (150-450); RBC Distribution Width CV 13.2 % (11.6-14.6); Red Blood Count 4.82 M/mm3 (4.6-6.2); White Blood Count 3.9 K/mm3 (4.4-11.0)
[2019-11-17 13:05] LABS: Erythrocyte Sedimentation Rate 7 mm/hr (0-15)
[2019-11-17 13:21] LABS: ALB/GLOB Ratio 1.2 RATIO (0.9-2.4); AST(SGOT) 16 U/L (15-37); Alanine Aminotransfer ALT/SGPT 41 U/L (16-61); Albumin, Serum 3.9 g/dL (3.2-5.0); Alkaline Phosphatase 61 U/L (45-117); Anion Gap 4 (5-15); BUN 15 mg/dL (7-18); BUN/Creat Ratio 16.3 RATIO (10-20); CRP < 2.90 mg/L (0.0-3.0); Calcium,Total 9.1 mg/dL (8.5-10.1); Chloride 105 mmol/L (98-107); Cholesterol 240 mg/dL (200); Creatinine, Serum 0.92 mg/dL (0.70-1.30); EST Glomerular Filtration Rate 99 mL/min (>60); Est Glom Filt Rate - Afr Amer 120 mL/min (>60); Globulin 3.3 g/dL (2.2-4.2); Glucose 92 mg/dL (74-106); High Density Lipoprotein 54 mg/dL; Potassium 4.1 mmol/L (3.5-5.1); Protein, Total 7.2 g/dL (6.4-8.2); Sodium Level 137 mmol/L (136-145); Thyroid Stim Hormone (TSH) 2.12 uIU/mL (0.358-3.74); Triglycerides 89 mg/dL; Very Low Density Lipoprotein 18 mg/dL (5-40)
[2019-11-19 16:06] LABS: Ceruloplasmin 23.3 mg/dL (16.0-31.0); Immunoglobulin A 173 mg/dL (90-386); Immunoglobulin E 22 IU/mL (6-495); Immunoglobulin G 940 mg/dL (603-1613); Immunoglobulin M 96 mg/dL (20-172)
[2019-11-20 05:06] LABS: Transferrin 204 mg/dL (177-329)
[2019-11-20 14:49] LABS: ANTINUCLEAR ANTIBODIES DIRECT Negative (Negative)
== END ==
PROVIDERS: PCP Family Medicine; Referring Provider Family Medicine; Visit Provider Family Medicine
DX: R51 Headache (principal); M62.838 Other muscle spasm; R42 Dizziness and giddiness; R59.1 Generalized enlarged lymph nodes; R00.0 Tachycardia, unspecified; E78.5 Hyperlipidemia, unspecified; R25.1 Tremor, unspecified
CPT/HCPCS: 80053; 80061; 82390; 82784; 82785; 84443; 84466; 85025; 85652; 86038; 86140; 86225; 86235

== ENCOUNTER 2019-12-01 12:46 | Emergency (ER) | payer OTHER, SELFPAY ==
[2018-06-08 14:47] VITALS: BMI 31.1
[2019-12-01 12:47] VITALS: BP 135/79; PULSE 87; RESP 18; TEMP 36.4; O2SAT 95; BMI 30.7
--- NOTE | 2019-12-01 13:03 | CT_ITS ---
STUDY: CT BRAIN WITHOUT CONTRAST REASON FOR EXAM: Male, 34 years old. Tremors, muscle spasms, chills, fatigue RADIATION DOSAGE (If Supplied By Facility): CTDIvol = ( 60.81 ) mGy, DLP = ( 1089.89 ) mGycm TECHNIQUE: Transaxial CT imaging of the brain was performed without administration of intravenous contrast material. Individualized dose optimization techniques were used for this CT. COMPARISON: No relevant priors. FINDINGS: Normal soft tissue structures. Normal calvarium. Normal size ventricles and extra-axial spaces for the patient''s age. Normal white matter tracts of the cerebral hemispheres. Normal basal ganglia and thalami. Normal brainstem. Normal cerebellum. There is no intracranial hemorrhage. There are no findings of an acute ischemic infarction. Normal visualized paranasal sinuses. CT/Brain/Head without Contrast IMPRESSION: Normal unenhanced CT scan of the brain. Electronically Signed: Bk Traore, at 14:05 EDT , Service support ,
--- NOTE | 2019-12-01 13:03 | EKG12_ITS ---
Test Reason : CHEST PAIN Blood Pressure : / mmHG Vent. Rate : 075 BPM Atrial Rate : 075 BPM P-R Int : 158 ms QRS Dur : 080 ms QT Int : 382 ms P-R-T Axes : 019 006 025 degrees QTc Int : 426 ms Normal sinus rhythm Normal ECG Confirmed by DEB RUIZ, SACHIN ([id number]), editorial assistant MAGALI CYR ([id number]) on 12/05/2019 3:15:36 PM Referred By: KAILEY Confirmed By:ALEX BOYD MD
[2019-12-01 13:46] LABS: Lyme Ab Screen Interpretation REF LAB
[2019-12-01 13:49] LABS: Absolute Neutrophil Count 4.1 X10^3/uL (2.0-7.7); Basophil# 0.02 X10^3/uL; Basophil% 0.4 % (0-1); Eosinophil# 0.04 X10^3/uL; Eosinophils% 0.7 % (0-5); Hematocrit 43.6 % (40-54); Hemoglobin 14.9 g/dL (13.0-16.5); Lymphocyte % 16.4 % (19-41); Mean Corp Hgb Conc 34.2 g/dL (32-36); Mean Corpuscular Hgb 30.4 pg (27.0-32.0); Mean Platelet Vol. 9.5 fl (6.2-12.0); Monocyte# 0.37 X10^3/uL; Monocyte% 6.8 % (0-10); NRBC Flagged by Analyzer 0 % (0-5); Neutrophil # 4.14 X10^3/uL (2.7-7.7); Neutrophil % 75.5 % (47-70); Platelet Count 234 K/mm3 (150-450); RBC Distribution Width CV 12.8 % (11.6-14.6); RBC Distribution Width SD 41.5 fl (35.1-43.9); White Blood Count 5.5 K/mm3 (4.4-11.0)
[2019-12-01 14:09] LABS: ALB/GLOB Ratio 1.2 RATIO (0.9-2.4); AST(SGOT) 12 U/L (15-37); Alanine Aminotransfer ALT/SGPT 30 U/L (16-61); Alkaline Phosphatase 56 U/L (45-117); Anion Gap 4 (5-15); BUN 16 mg/dL (7-18); BUN/Creat Ratio 17.9 RATIO (10-20); Calcium,Total 9.3 mg/dL (8.5-10.1); Chloride 108 mmol/L (98-107); Creatinine, Serum 0.89 mg/dL (0.70-1.30); EST Glomerular Filtration Rate 102 mL/min (>60); Est Glom Filt Rate - Afr Amer 123 mL/min (>60); Estimated Creatinine Clearance 125.94 ml/min; Globulin 3.3 g/dL (2.2-4.2); Glucose 99 mg/dL (74-106); Potassium 4.3 mmol/L (3.5-5.1); Protein, Total 7.3 g/dL (6.4-8.2); Sodium Level 140 mmol/L (136-145)
--- NOTE | 2019-12-01 14:44 | ED.DCSUM_ITS ---
- ER Visit Summary Date of Service: 12/01/19 Chief Complaint: Tremors and weakness History of Present Illness: The patient is a [address] Marsh. He reports that he has had tremors for months. He had an MRI in August of this year that was unremarkable. He states that he has a follow-up with a neurologist in [place] on December 20. Patient reports over the past 3 weeks the tremors of gotten worse. He is a are now diffuse. He also complains of diffuse weakness. He reports that he has par esthesias and that he has 20% less feel all over. Patient denies family history of MS. However he is concerned that he may have MS or ALS. States that he is taking Ativan for anxiety. Physical Examination: Vitals: Stable. Afebrile. General: Well-nourished and well-developed. Head: Normocephalic atraumatic. Neck: Supple, no lymphadenopathy. No JVD. Nontender. Cardiovascular: Regular rate and rhythm. No murmurs. Respiratory: No respiratory distress. Clear to auscultation bilaterally. Abdominal: Soft, nontender, nondistended, normal bowel sounds. No guarding, rebound, or peritoneal signs. Back: Nontender. Extremities: Nontender, no edema. Skin: Normal color, no rash. Neurologic: Alert and oriented ?3. Cranial nerves II through XII are intact. Normal strength and sensation. Psych: Normal affect. Test Results: EKG is sinus at 75 no acute changes. Troponin is negative. LFTs show an AST of 12. Chem-7 shows a chloride of 108. CBC shows segmented for 76 lymphocytes of 16. Clinical Impression(s) from Imaging Studies Brain CT 12/01/19 13:03 IMPRESSION: Normal unenhanced CT scan of the brain. Electronically Signed: Bk Traore, at 14:05 EDT , Service support , Emergency Department Course and Treatment: Reviewed the MRI the patient had in August and it was unremarkable. There were no white matter changes to suggest MS. Had a prolonged discussion with him at this time I do not have an explanation for his symptoms. Treatment Plan: Patient be discharged instructions to follow-up with neurologist soon as possible. Return to the emergency department for any worsening symptoms. Disposition: To home in improved and stable condition. Impression: 1. Tremors, uncertain cause. 2. Generalized weakness, uncertain cause. This note was generated with [employer] dictation software. It may contain incorrect words, spelling, and punctuation that were not noted in review of the chart prior to signing ED Disposition - Plan for ED Patient: Disposition: Home or Assisted Living Instructions: ED Weakness [facility] Referrals: Sukh Marsh DO [Primary Care Provider] - 3-5 Days
[2019-12-01 14:54] VITALS: BP 120/81; PULSE 63; RESP 17; TEMP 36.6; O2SAT 98
[2019-12-04 20:56] LABS: Lyme Scn Total Ab w/Rflx <0.91 ISR (0.00-0.90)
== END 2019-12-01 15:00 | disposition home or self-care (01) ==
LOC: ED 13:32
PROVIDERS: Emergency Provider Emergency Medicine; PCP Family Medicine
DX: R25.1 Tremor, unspecified (principal); R53.1 Weakness; R11.0 Nausea; F41.9 Anxiety disorder, unspecified; Z79.899 Other long term (current) drug therapy
CPT/HCPCS: 70450; 80053; 84484; 85025; 86618; 93005; 96360; 99284; J7040

== ENCOUNTER → 2019-12-21 10:27 | Outpatient (CLI) | payer OTHER, SELFPAY ==
[2019-12-21 09:23] VITALS: BMI 29.9
[2019-12-21 11:12] LABS: Vitamin B12 554 pg/mL (211-911); Vitamin D,25 Hydroxy 35.7 ng/mL
[2019-12-21 11:21] LABS: CPK Total, Creatine Kinase 51 U/L (39-308)
[2019-12-26 12:07] LABS: Aldolase 3.6 U/L (3.3-10.3); Free Kappa Light Chains 11.7 mg/L (3.3-19.4); Free Lambda Light Chains 11.2 mg/L (5.7-26.3); Vitamin B1, Thiamine 142.6 nmol/L (66.5-200.0)
[2019-12-26 12:29] LABS: Myoglobin, Serum < 21 ng/mL (28-72)
== END ==
PROVIDERS: Nurse Practitioner Family; PCP Family Medicine; Visit Provider Psychiatry & Neurology Neurology
DX: G62.9 Polyneuropathy, unspecified (principal); R53.83 Other fatigue
CPT/HCPCS: 36415; 82085; 82306; 82550; 82607; 82746; 83874; 83883; 84425

== ENCOUNTER → 2020-02-22 20:26 | Outpatient (CLI) | payer OTHER, SELFPAY ==
[2020-01-18 19:44] VITALS: BMI 30.7
== END ==
PROVIDERS: PCP Family Medicine; Referring Provider Psychiatry & Neurology Neurology; Visit Provider Psychiatry & Neurology Neurology
DX: G47.00 Insomnia, unspecified (principal); R25.3 Fasciculation
CPT/HCPCS: 95810

== ENCOUNTER → 2020-05-02 12:21 | Outpatient (CLI) | payer OTHER, SELFPAY ==
[2020-02-29 09:52] VITALS: BMI 30.7
== END ==
PROVIDERS: PCP Family Medicine; Referring Provider Psychiatry & Neurology Neurology; Visit Provider Psychiatry & Neurology Neurology
DX: G47.33 Obstructive sleep apnea (adult) (pediatric) (principal)

== ENCOUNTER → 2020-08-16 13:17 | Outpatient (CLI) | payer OTHER, SELFPAY ==
[2020-02-29 09:52] VITALS: BMI 30.7
[2020-08-16 13:24] LABS: Bacteria 0 SEEN /hpf (None Seen); Mucous, Urine 0 SEEN /hpf (<or=2+); Red Blood Cells-Urine 0 SEEN /hpf (0-5); Squamous Epithelial Cells - UA 0 SEEN /hpf (0-5); White Blood Cells 0 SEEN /hpf (0-5)
[2020-08-16 13:51] LABS: Erythrocyte Sedimentation Rate 1 mm/hr (0-20)
[2020-08-16 13:53] LABS: Absolute Lymphocyte Count 1.54 X10^3/uL (0.83-4.51); Absolute Neutrophil Count 2.9 X10^3/uL (2.0-7.7); Basophil# 0.02 X10^3/uL; Basophil% 0.4 % (0-1); Eosinophil# 0.08 X10^3/uL; Eosinophils% 1.6 % (0-5); Hematocrit 45.3 % (40-54); Hemoglobin 15.2 g/dL (13.0-16.5); Lymphocyte # 1.54 X10^3/ul (4.0); Lymphocyte % 30.6 % (19-41); Mean Corp Hgb Conc 33.6 g/dL (32-36); Mean Corpuscular Volume 89.3 fL (80-94); Mean Platelet Vol. 10.1 fl (6.2-12.0); Monocyte# 0.49 X10^3/uL; Monocyte% 9.7 % (0-10); NRBC Flagged by Analyzer 0 % (0-5); Neutrophil # 2.89 X10^3/uL (2.7-7.7); Neutrophil % 57.5 % (47-70); Platelet Count 258 K/mm3 (150-450); RBC Distribution Width CV 12.9 % (11.6-14.6); Red Blood Count 5.07 M/mm3 (4.6-6.2)
[2020-08-16 14:08] LABS: Color, Urine Yellow (Yellow); Glucose, Dipstick Normal (Normal); Ketone-Dipstick Negative (Negative); Leukocyte Esterase-Dipstick Negative /ul (Negative); Nitrite-Dipstick Negative (Negative); Occult Blood-Urine Negative /ul (Negative); Protein-Dipstick Negative (Negative); Urine Bilirubin Dipstick Negative (Negative); Urine Clarity Clear (Clear); Urine Urobilinogen Normal (Normal)
[2020-08-16 14:21] LABS: ALB/GLOB Ratio 1.2 RATIO (0.9-2.4); AST(SGOT) 14 U/L (15-37); Alanine Aminotransfer ALT/SGPT 32 U/L (16-61); Albumin, Serum 4.1 g/dL (3.2-5.0); Alkaline Phosphatase 78 U/L (45-117); Anion Gap 4 (5-15); BUN 17 mg/dL (7-18); BUN/Creat Ratio 17.5 RATIO (10-20); Calcium,Total 9.5 mg/dL (8.5-10.1); Chloride 104 mmol/L (98-107); Cholesterol 230 mg/dL (200); Creatinine, Serum 0.97 mg/dL (0.70-1.30); EST Glomerular Filtration Rate 92 mL/min (>60); Est Glom Filt Rate - Afr Amer 111 mL/min (>60); Globulin 3.5 g/dL (2.2-4.2); Glucose 87 mg/dL (74-106); High Density Lipoprotein 54 mg/dL; Potassium 4.4 mmol/L (3.5-5.1); Protein, Total 7.6 g/dL (6.4-8.2); Sodium Level 138 mmol/L (136-145); Triglycerides 109 mg/dL; Very Low Density Lipoprotein 22 mg/dL (5-40)
== END ==
PROVIDERS: PCP Family Medicine; Visit Provider Family Medicine
DX: Z00.00 Encounter for general adult medical examination without abnormal findings (principal); R10.9 Unspecified abdominal pain; R30.0 Dysuria
CPT/HCPCS: 36415; 80053; 80061; 81001; 84153; 85025; 85652; 86140; G0103

== ENCOUNTER → 2020-08-23 12:53 | Outpatient (CLI) | payer OTHER, SELFPAY ==
[2020-02-29 09:52] VITALS: BMI 30.7
--- NOTE | 2020-08-23 12:55 | CT_ITS ---
STUDY: CT ABDOMEN AND PELVIS WITH CONTRAST REASON FOR EXAM: Male, 35 years old. LOWER ABD PAIN AND PELVIC PAIN BILATERAL X 1 MONTH. NAUSEA/VOMITING X 2 WEEKS. NO DIARRHEA OR CONSTIPATION. RADIATION DOSAGE (If Supplied By Facility): CTDIvol = ( 14.965 ) mGy, DLP = ( 1072.11 ) mGycm TECHNIQUE: Transaxial images were obtained from the dome of the diaphragm to the symphysis pubis with oral contrast. Oral and amp; IV Readi-CAT and amp; 100mL Isovue-370 was administered. Sagittal and coronal images were reconstructed. Individualized dose optimization techniques were used for this CT. COMPARISON: Comparison is made with prior study dated 12/07/2016. FINDINGS: The visualized lung bases are unremarkable. The visualized portions of the heart are within normal limits. There is decreased attenuation of the liver consistent with steatosis. Normal gallbladder and extrahepatic biliary system. Normal spleen. Normal pancreas. Normal bilateral adrenal glands. Normal right kidney. Normal left kidney. There is a small hiatal hernia. Normal small intestine. Normal colon. The appendix is visualized and appears normal. Normal abdominal aorta. Normal inferior vena cava. Normal retroperitoneum. Normal urinary bladder. Normal abdominal wall. Grade 1 anterior listhesis of L5 on S1 with spondylolysis of the pars interarticularis of the L5 vertebrae. CT/Abdomen/Pelvis WITH Contrast IMPRESSION: Fatty infiltration of the liver. Electronically Signed: Bk Traore MD at 13:44 EST , Service support ,
== END ==
PROVIDERS: PCP Family Medicine; Referring Provider Family Medicine; Visit Provider Family Medicine
DX: R10.9 Unspecified abdominal pain (principal); R10.2 Pelvic and perineal pain
CPT/HCPCS: 74177; Q9967

== ENCOUNTER 2022-08-19 17:23 | Emergency (ER) | payer OTHER, SELFPAY ==
[2022-08-19 17:24] VITALS: BP 118/89; PULSE 69; RESP 15; TEMP 36; O2SAT 97; BMI 31.0
--- NOTE | 2022-08-19 17:59 | EKG12_ITS ---
Test Reason : CP Blood Pressure : / mmHG Vent. Rate : 059 BPM Atrial Rate : 059 BPM P-R Int : 170 ms QRS Dur : 086 ms QT Int : 410 ms P-R-T Axes : 022 008 036 degrees QTc Int : 405 ms Sinus bradycardia with sinus arrhythmia Otherwise normal ECG Confirmed by DEB RUIZ, SACHIN ([id number]), supervising film or videotape editor JULIA COTTO ([id number]) on 08/21/2022 8:55:10 AM Referred By: GOPAL Confirmed By:ALEX BOYD MD
--- NOTE | 2022-08-19 18:00 | RAD_ITS ---
EXAM: XR CHEST, 1 VIEW CLINICAL INDICATION: chest pain TECHNIQUE: Frontal view of the chest. This report was created using [email or web address] report generation technology. COMPARISON: None. FINDINGS: LUNGS AND PLEURAL SPACES: Unremarkable. No consolidation or edema. No pneumothorax. No effusion. HEART: Unremarkable. Cardiac silhouette not enlarged. MEDIASTINUM: Central airways and mediastinal contour are unremarkable. BONES/JOINTS: Unremarkable. SOFT TISSUES: Unremarkable. RAD/Chest 1 View (Portable) IMPRESSION: No radiographic evidence of acute cardiopulmonary disease. Electronically Signed: Morgan Hernandez MD at 18:15 EST ,
--- NOTE | 2022-08-19 18:00 | ED.VIS.CHEST ---
HPI History of Present Illness Chief Complaint: Chest Pain Informant: patient Onset/Context/Timing Onset: Days Narrative Narrative: Patient presents secondary to chest pain. He states for the past week he has had intermittent episodes of left-sided chest pain and over the past day or so has noted pain down into his left arm. He describes a very brief pain when he takes a deep breath in, and it seems to subside when he exhales. He does not feel short of breath. Pain is not necessarily worse with exertion. Patient also reports having right upper quadrant pain for the past 6 weeks. He is scheduled to see his primary care physician next week for this. [facility] Medical History Anxiety Liver disease Obesity Home Medications cholecalciferol (vitamin D3) 25 mcg (1,000 unit) tablet 25 mcg PO DAILY 12/21/19 [History Last Taken Unknown] coQ10 (ubiquinol) 100 mg capsule 1,000 mg PO BID 12/21/19 [History Last Taken Unknown] lorazepam 1 mg tablet 1 mg PO BID-TID PRN Anxiety 12/21/19 [History Last Taken Unknown] mecobalamin (vitamin B12) 1,000 mcg chewable tablet 400 mcg PO DAILY 12/21/19 [History Last Taken Unknown] niacinamide 500 mg tablet 500 mg PO DAILY 12/21/19 [History Last Taken Unknown] vit B complex 100 combo no.2 100 mg tablet,extended release (B-100 Complex ER) tab PO 12/21/19 [History Last Taken Unknown] vitamin E 200 unit capsule 630 unit PO DAILY 12/21/19 [History Last Taken Unknown] buspirone 10 mg tablet 10 mg PO BID #60 tabs 02/06/21 [Rx Last Taken Unknown] Allergy/AdvReac Type Severity Reaction Status Date / Time No Known Allergies Allergy Verified 08/19/22 17:24 Family History Father CAD (coronary artery disease) age 54 Social History Smoking Status: Former smoker quit date: 07/19/05 pack-years: 3 how long ago did patient quit smokinyrs alcohol intake: current alcohol intake frequency: a few times a week Alcohol type: beer and hard liquor substance use type: does not use ROS ROS ED Constitutional Constitutional ED: Denies chills or fever(s) Eyes Eyes: Denies change in vision or discharge from eye(s) ENT ENT ED: Denies discharge from eye(s), rhinorrhea or sore throat Cardiovascular Cardiovascular: Reports chest pain; Denies palpitations Respiratory/Chest Respiratory/Chest: Denies cough or dyspnea Gastrointestinal Gastrointestinal: Reports abdominal pain; Denies diarrhea, nausea or vomiting Genitourinary Genitourinary ED: Denies dysuria Musculoskeletal Musculoskeletal: Reports extremity pain; Denies back pain Integumentary Denies Abrasions or rash Neurologic Neurologic: Denies headache(s) or weakness Psychiatric Psychiatric: Denies anxiety or depression Allergic/Immunologic Allergic/Immunologic ED: Denies lip swelling or urticaria EXAM Physical Exam Const Vital Signs: 08/19/22 17:24 08/19/22 17:56 08/19/22 18:01 Temperature 96.8 F L Temperature Source Temporal Pulse Rate 69 Respiratory Rate 15 Respiratory Effort Normal Blood Pressure 118/89 H Blood Pressure Mean 98 Pulse Ox 97 Oxygen Delivery Method Room Air Room Air Positive well nourished and well developed General Appearance ED: well developed HEENT Reports normocephalic and head/scalp atraumatic Eyes PERRL and EOMs intact bilaterally Neck supple Chest Wall inspection of chest normal and palpation of chest normal Resp normal respiratory effort and clear to auscultation bilaterally Cardio regular rate and regular rhythm GI GI Narrative: Minimal tenderness to the right upper quadrant. No guarding or rebound. Palpation: soft Extremity normal to inspection Neuro oriented x3 and no sensory deficits noted Sensorium / Orientation: alert Motor Exam: strength 5/5 throughout Psych mental status grossly normal Skin no rashes or lesions noted Heart Score History: Slightly/Non-Suspicious ECG: Normal Age: </= 45 years Risk Factors: No Risk Factors Troponin: </= Normal Limit Score: 0 MDM MDM MDM Narrative Medical decision making narrative: Patient given aspirin on arrival. Patient placed on environmental monitoring technician. EKG obtained to evaluate for ischemia or arrhythmia. Chest x-ray obtained to evaluate any lung pathology and cardiac size. Lab work obtained to evaluate for anemia, electrolyte derangement, liver abnormality, potential for PE or cardiac ischemia. Lab Data Attestation: I reviewed the patient's lab results. Labs: Laboratory Results - last 24 hr 08/19/22 08/19/22 08/19/22 17:56 17:56 17:56 WBC 4.5 RBC 4.94 Hgb 15.3 Hct 44.7 MCV 90.5 MCH 31.0 MCHC 34.2 RDW Std Deviation 43.8 RDW Coeff of Zoltan 13.2 Plt Count 243 MPV 9.8 Immature Gran % (Auto) 0.000 Neut % (Auto) 54.2 Lymph % (Auto) 33.6 [place] % (Auto) 9.7 Eos % (Auto) 1.8 Baso % (Auto) 0.7 Absolute Neuts (auto) 2.5 Absolute Lymphs (auto) 1.52 Nucleated RBC % 0 D-Dimer Quant (PE/DVT) < 0.27 L Sodium 141 Potassium 4.1 Chloride 106 Carbon Dioxide 29.0 Anion Gap 6 BUN 14 Creatinine 1.00 Estim Creat Clear Calc 108.86 Est GFR (MDRD) Af Amer 107 Est GFR (MDRD) Non-Af 88 BUN/Creatinine Ratio 14.0 Glucose 88 Calcium 9.3 Total Bilirubin 0.30 Direct Bilirubin 0.11 AST 16 ALT 29 Alkaline Phosphatase 70 Troponin I High Sens 4 Total Protein 7.5 Albumin 4.0 Globulin 3.5 Radiography Chest X-Ray - ED: 1 View, Read by ED Physician, Normal, Heart, Lungs and Mediastinum Diagnostic Testing: Clinical Impression(s) from Imaging Studies Chest X-Ray 08/19/22 18:00 IMPRESSION: No radiographic evidence of acute cardiopulmonary disease. Electronically Signed: Morgan Hernandez MD at 18:15 EST , EKG Initial EKG: Attestation: I personally reviewed and interpreted this EKG as follows: Interpretation: Sinus Bradycardia (Sinus bradycardia at 59 bpm. No acute ischemia.) Treatment and Re-Evaluation Narrative: Repeat evaluation patient resting comfortably. Test results discussed with him. EKG reveals no acute ischemia. Chest x-ray per my interpretation is unremarkable. Radiology interpretation reviewed. Lab work is normal with negative D-dimer and troponin. LFTs are all normal. Patient reassured with these findings. He will follow with his primary care physician next week as scheduled. Return instructions given. Discharge Plan Triage Chief Complaint: Chest Pain ED Provider: Angela Hall Dx/Rx/DC Orders Clinical Impression: Chest pain Instructions: ED Chest Pain, Uncertain Cause Prescriptions: No Action coQ10 (ubiquinol) 100 mg capsule 1,000 mg PO BID B-100 Complex 100 mg tablet extended release PO niacinamide 500 mg tablet 500 mg PO DAILY cholecalciferol (vitamin D3) 25 mcg (1,000 unit) tablet 25 mcg PO DAILY vitamin E 200 unit capsule 630 unit PO DAILY mecobalamin (vitamin B12) 1,000 mcg tablet,chewable 400 mcg PO DAILY buspirone 10 mg tablet 10 mg PO BID Qty: 60 3RF lorazepam 1 mg tablet 1 mg PO BID-TID PRN (Reason: Anxiety) Primary Care Provider: Sukh Marsh Referrals: Sukh Marsh DO [Primary Care Provider] - Keep Asael appointment Disposition Disposition: Home, Self Care
[2022-08-19] MEDS: Aspirin 81 MG TAB.CHEW 324 MG PO (18:11)
[2022-08-19 18:16] LABS: Absolute Lymphocyte Count 1.52 X10^3/uL (0.83-4.51); Absolute Neutrophil Count 2.5 X10^3/uL (2.0-7.7); Basophil# 0.03 X10^3/uL; Basophil% 0.7 % (0-1); Eosinophil# 0.08 X10^3/uL; Eosinophils% 1.8 % (0-5); Hematocrit 44.7 % (40-54); Hemoglobin 15.3 g/dL (13.0-16.5); Lymphocyte # 1.52 X10^3/ul (0.83-4.51); Lymphocyte % 33.6 % (19-41); Mean Corp Hgb Conc 34.2 g/dL (32-36); Mean Corpuscular Volume 90.5 fL (80-94); Mean Platelet Vol. 9.8 fl (6.2-12.0); Monocyte# 0.44 X10^3/uL; Monocyte% 9.7 % (0-10); NRBC Flagged by Analyzer 0 % (0-5); Neutrophil # 2.46 X10^3/uL (2.7-7.7); Neutrophil % 54.2 % (47-70); Platelet Count 243 K/mm3 (150-450); RBC Distribution Width CV 13.2 % (11.6-14.6); RBC Distribution Width SD 43.8 fl (35.1-43.9); Red Blood Count 4.94 M/mm3 (4.6-6.2); White Blood Count 4.5 K/mm3 (4.4-11.0)
[2022-08-19] MEDS: 0.9% Normal Saline 1,000 ML 150 ML IV (18:20)
[2022-08-19 18:31] LABS: D-Dimer Quantitative (DVT/PE) < 0.27 FEU/ug/m (0.27-0.49)
[2022-08-19 18:34] LABS: AST(SGOT) 16 U/L (15-37); Alanine Aminotransfer ALT/SGPT 29 U/L (16-61); Alkaline Phosphatase 70 U/L (45-117); Anion Gap 6 (5-15); BUN 14 mg/dL (7-18); Bilirubin, Direct 0.11 mg/dL (0.00-0.30); Calcium,Total 9.3 mg/dL (8.5-10.1); Chloride 106 mmol/L (98-107); EST Glomerular Filtration Rate 88 mL/min (>60); Est Glom Filt Rate - Afr Amer 107 mL/min (>60); Estimated Creatinine Clearance 108.86 ml/min; Globulin 3.5 g/dL (2.2-4.2); Glucose 88 mg/dL (74-106); Potassium 4.1 mmol/L (3.5-5.1); Protein, Total 7.5 g/dL (6.4-8.2); Sodium Level 141 mmol/L (136-145); Troponin-I HS (w/2H Reflex) 4 pg/mL (3.0-78.0)
[2022-08-19 20:12] LABS: Reflex Troponin-HS? (from REC) Y
[2022-08-19 20:16] VITALS: BP 116/80; PULSE 51; RESP 16; O2SAT 98
== END 2022-08-19 20:18 | disposition home or self-care (01) ==
PROVIDERS: Emergency Provider Emergency Medicine; PCP Family Medicine; Visit Provider Emergency Medicine
DX: R07.9 Chest pain, unspecified (principal); Z87.891 Personal history of nicotine dependence; R10.11 Right upper quadrant pain
CPT/HCPCS: 71045; 80048; 80076; 84484; 85025; 85379; 93005; 96360; 96361; 99283; J7030; A4216

== ENCOUNTER → 2023-03-25 | Outpatient (CLI) | payer OTHER, SELFPAY ==
[2023-03-25 15:30] LABS: Erythrocyte Sedimentation Rate 3 mm/hr (0-20)
[2023-03-25 15:40] LABS: Hemoglobin A1c 5.1 % (3.8-5.6)
[2023-03-25 15:45] LABS: Vitamin B12 545 pg/mL (211-911)
[2023-03-25 16:45] LABS: CRP 3.37 mg/L (0.0-3.0); Rheumatoid Factor < 10.0 IU/mL (<15); Thyroid Stim Hormone (TSH) 2.19 uIU/mL (0.358-3.74)
[2023-03-29 16:09] LABS: Endomysial Antibody IgA Negative (Negative); Immunoglobulin A 162 mg/dL (90-386); Immunoglobulin G 943 mg/dL (603-1613); Immunoglobulin M 92 mg/dL (20-172); PROEL- A/G Ratio 1.4 (0.7-1.7); PROEL- Alpha-1 Globulin 0.2 g/dL (0.0-0.4); PROEL- Alpha-2 Globulin 0.6 g/dL (0.4-1.0); PROEL- Beta Globulin 1.1 g/dL (0.7-1.3); PROEL- Globulin, Total 2.9 g/dL (2.2-3.9); PROEL- TOTAL PROTEIN 6.9 g/dL (6.0-8.5); t-Transglutaminase IgA <2 U/mL (0-3)
[2023-03-31 00:07] LABS: ANTINUCLEAR ANTIBODIES DIRECT Negative (Negative); Methylmalonic Acid Bld 134 nmol/L (0-378)
== END | disposition home or self-care (01) ==
LOC: LAB 14:12
PROVIDERS: PCP Family Medicine; Visit Provider Psychiatry & Neurology Neurology
DX: R20.2 Paresthesia of skin (principal)
CPT/HCPCS: 36415; 82607; 82746; 82784; 83036; 83516; 83921; 84165; 84443; 85652; 86038; 86140; 86255; 86334; 86431

== ENCOUNTER → 2023-06-15 | Outpatient (CLI) | payer OTHER, SELFPAY ==
[2023-06-15 18:23] LABS: CRP 6.48 mg/L (0.0-3.0); Cholesterol 243 mg/dL (200); High Density Lipoprotein 66 mg/dL; Triglycerides 68 mg/dL; Very Low Density Lipoprotein 14 mg/dL (5-40)
== END | disposition home or self-care (01) ==
PROVIDERS: PCP Family Medicine; Visit Provider Family Medicine
DX: Z00.00 Encounter for general adult medical examination without abnormal findings (principal); R79.82 Elevated C-reactive protein (CRP)
CPT/HCPCS: 36415; 80061; 86140

== ENCOUNTER → 2023-06-18 | Outpatient (CLI) | payer OTHER, SELFPAY ==
--- NOTE | 2023-06-18 13:26 | RAD_ITS ---
INDICATION: LBP RADIATING INTO HIPS EXAMINATION/TECHNIQUE: X-RAY - XR Spine Lumbar Comp W/ Bending Min 6 Views COMPARISON: CT abdomen and pelvis 08/23/2020 FINDINGS: AP and lateral, bilateral oblique views, and lateral views with flexion and extension. Total of 7 images. Vertebral bodies are normal in height. No definite fracture demonstrated. Bilateral pars defects at L5. Anterior subluxation of L5 on S1 pf 17 mm. No paravertebral soft tissue mass identified. There is minimal change with flexion-extension. RAD/L/S Spine Comp/w Bending Views IMPRESSION: Bilateral spondylolysis with grade 1-2 spondylolisthesis at L5-S1. This appears increased compared to the prior CT abdomen and pelvis. MRI may be helpful for further evaluation as clinically indicated.. Electronically Signed: Nichole Ontiveros MD at 0:04 EST ,
== END | disposition home or self-care (01) ==
LOC: RAD 13:26
PROVIDERS: PCP Family Medicine; Referring Provider Family Medicine; Visit Provider Family Medicine
DX: M54.50 Low back pain, unspecified (principal); M43.17 Spondylolisthesis, lumbosacral region
CPT/HCPCS: 72114

== ENCOUNTER 2023-10-06 11:19 | Outpatient (RCR) | payer OTHER, SELFPAY ==
--- NOTE | 2023-10-06 12:29 | HP.PTEVAL ---
Patient's Visit Information Visit Information Visit Information: OTIS GEE is a 38 year old M referred to Physical Therapy by Dr. Ace Luke MD with a diagnosis of Pain in B hips, spondylolithesis, pain in leg. Date of Evaluation: 10/06/23 Physical Therapist: TADEO England Visit Plan Frequency: 1-2x /Week Duration: 6 Weeks Plan: 1-2X/ week for 4-5 visits to start learning neutral spine core stability for home and take back to his gym. Extension increases his pain somewhat... good LE muscle length. L Heel raise is a little weaker compared to the R. Seeing Neurologist for possible progressive muscle disease on the L and has MRI's soon. Subjective Subjective: Pt had an x-ray on his back and had spondylilolithesis. Last spring golfing and started to get a pain in tailbone and would come and go. He has pain and tingling on his L side and gets worse with movement or harder workout and will pay later with vibration and pain in the joints. Not sure what neurology is thinking. He has an MRI of brain and of hips on Wednesday and nerve conduction test on Wed next week. A lot of his pain is in L buttocks but also some in middle and some towards the R side. Heavier movement makes his tailbone pain worse. He has pain on the L all down his leg. Stress level 4/10. Walking long distances causes L anterior foot pain. If he uses his muscles he will get muscle pain/joint pain. He does some bench press, lat pull down, kettle mckenzie (has avoided because of the back), walking. Pain Tailbone pain: Pain Intensity (Out of 10): 2 Pain Intensity Range: 8 L Leg pain: Pain Intensity (Out of 10): 2 Pain Intensity Range: 8 Objective Objective: Gait: normal gait pattern L heel raise weaker than the R LE strength: R hip flex 18.1 and L 16.8 R knee ext 28.9 and L knee ext 25.6 R knee flex 15.6 and L 15.3 R hip abd 20.7 and L 17 R hip ext 9.8 and L hip ext 12.4 Prone lying no pain, KRISTY X 10 (pain on the L LB/buttocks) and after 10 he started to have a little more back/tailbone pain Patella 2+/3 B Pelvic Tilt Hold 3 seconds X 10... felt on the L side of his LB... after 10 he had no pain Good piriformis length, good HS length, slightly tight IT BAND Normal Trunk AROM Balance/Special Test Scores Lower Extremity Functional Score: 72 Goals Goal 1:: I HEP Goal Time Frame: 6-8 Weeks Goal 2:: Decrease freq and intensity of taibone pain Goal Time Frame: 6-8 Weeks Rehabilitation Potential Rehabilitation Potential: Good Anticipated Interventions Patient/Client Instruction: Educate patient on: Condition and Plan of Care For the Purpose of:: To decrease pain, To decrease swelling/inflammation, To improve muscle performance and motor function, To improve ability to perform ADL's, To increase tolerance to activity/condition/position, To improve performance and independence with ADL's, To decrease level of supervision to perform tasks, To improve ability of physical actions for home/community/work/leisure, To improve gait and locomotor functions, To improve health of tissue and To decrease soft tissue restriction Therapeutic Exercise to Include: Strength training, Endurance training, Postural training, Gait and locomotor training, Neuromotor development, Active ROM, Dynamic Lumbar Stabilization and Scapular Strength/Stabilization For the Purpose of:: To decrease pain, To increase ROM, To improve nutrient delivery to tissue, To improve muscle performance and motor function, To improve ability to perform ADL's, To increase tolerance to activity/condition/position, To improve performance and independence with ADL's, To decrease level of supervision to perform tasks, To improve gait and locomotor functions, To improve health of tissue and To increase flexibility/ROM Text: Thank you for the opportunity to evaluate your patient. For Medicare and Medicare HMO plans, please review the plan of care and approve it. It will need to be FAXED BACK to us at [phone] for Medicare purposes. For Medicare only, by signing this I certify the plan of care. Please let me know if there are questions or concerns regarding this plan of care. Physician Signature: Date:
--- NOTE | 2024-01-28 14:13 | HP.PT.NRP ---
Patient Information Patient Information: OTIS GEE was seen in my office for initial evaluation on 10/06/23. The following Plan of Care was established for this patient: POC Established Initial Frequency: 1-2x /Week Initial Duration: 6 Weeks Anticipated Interventions Patient/Client Instruction: Educate patient on: Condition and Plan of Care For the Purpose of:: To decrease pain, To decrease swelling/inflammation, To improve muscle performance and motor function, To improve ability to perform ADL's, To increase tolerance to activity/condition/position, To improve performance and independence with ADL's, To decrease level of supervision to perform tasks, To improve ability of physical actions for home/community/work/leisure, To improve gait and locomotor functions, To improve health of tissue and To decrease soft tissue restriction Therapeutic Exercise to Include: Strength training, Endurance training, Postural training, Gait and locomotor training, Neuromotor development, Active ROM, Dynamic Lumbar Stabilization and Scapular Strength/Stabilization For the Purpose of:: To decrease pain, To increase ROM, To improve nutrient delivery to tissue, To improve muscle performance and motor function, To improve ability to perform ADL's, To increase tolerance to activity/condition/position, To improve performance and independence with ADL's, To decrease level of supervision to perform tasks, To improve gait and locomotor functions, To improve health of tissue and To increase flexibility/ROM Last Seen Last Seen: This patient was last seen in our office 10/06/23. Pertinent comments regarding their Physical therapy will appear below: ADIEL PT. At this point I will be discontinuing this patient from physical therapy. I would be happy to see this patient again in the future if found appropriate by the physician. Thank you! Carissa Braden, MPT Balance/Gait/Functional tests Balance/Special Test Scores Lower Extremity Functional Score: 72
== END 2023-10-06 19:00 | disposition home or self-care (01) ==
LOC: PT 11:19
PROVIDERS: PCP Family Medicine; Referring Provider Psychiatry & Neurology Neurology; Visit Provider Psychiatry & Neurology Neurology
DX: M25.551 Pain in right hip (principal); M25.552 Pain in left hip; M54.50 Low back pain, unspecified; M43.17 Spondylolisthesis, lumbosacral region; M79.606 Pain in leg, unspecified
CPT/HCPCS: 97161

== ENCOUNTER → 2023-10-06 | Outpatient (CLI) | payer OTHER, SELFPAY ==
[2023-10-06 15:13] LABS: Hematocrit 45.9 % (40-54); Hemoglobin 15.4 g/dL (13.0-16.5); Mean Corp Hgb Conc 33.6 g/dL (32-36); Mean Corpuscular Volume 89.5 fL (80-94); Mean Platelet Vol. 10.1 fl (6.2-12.0); Platelet Count 268 K/mm3 (150-450); RBC Distribution Width CV 13.7 % (11.6-14.6); RBC Distribution Width SD 44.9 fl (35.1-43.9); Red Blood Count 5.13 M/mm3 (4.6-6.2); White Blood Count 4.4 K/mm3 (4.4-11.0)
[2023-10-06 15:42] LABS: Vitamin B12 679 pg/mL (211-911)
[2023-10-06 16:02] LABS: ALB/GLOB Ratio 1.1 RATIO (0.9-2.4); AST(SGOT) 15 U/L (15-37); Alanine Aminotransfer ALT/SGPT 32 U/L (16-61); Alkaline Phosphatase 64 U/L (45-117); Anion Gap 5 (5-15); BUN 16 mg/dL (7-18); BUN/Creat Ratio 17.8 RATIO (10-20); CPK Total, Creatine Kinase 45 U/L (39-308); Calcium,Total 9.4 mg/dL (8.5-10.1); Chloride 104 mmol/L (98-107); EST Glomerular Filtration Rate 99 mL/min (>60); Est Glom Filt Rate - Afr Amer 120 mL/min (>60); Globulin 3.5 g/dL (2.2-4.2); Glucose 94 mg/dL (74-106); Magnesium 2.3 mg/dL (1.6-2.6); Potassium 4.2 mmol/L (3.5-5.1); Protein, Total 7.5 g/dL (6.4-8.2); Sodium Level 138 mmol/L (136-145); Thyroid Stim Hormone (TSH) 2.13 uIU/mL (0.358-3.74); Uric Acid 5.7 mg/dL (3.5-7.2)
[2023-10-09 12:08] LABS: Vitamin D 1,25-Dihydroxy 84.8 pg/mL (24.8-81.5)
[2023-10-12 13:08] LABS: Aldolase 3.2 U/L (3.3-10.3); Free Kappa Light Chains 15.4 mg/L (3.3-19.4); Free Lambda Light Chains 11.8 mg/L (5.7-26.3); Myoglobin, Serum 34 ng/mL (28-72); Vitamin B1, Thiamine 138.3 nmol/L (66.5-200.0)
== END | disposition home or self-care (01) ==
PROVIDERS: PCP Family Medicine; Referring Provider Psychiatry & Neurology Neurology; Visit Provider Psychiatry & Neurology Neurology
DX: R20.2 Paresthesia of skin (principal); M79.606 Pain in leg, unspecified; M25.551 Pain in right hip; M25.552 Pain in left hip
CPT/HCPCS: 36415; 80053; 82085; 82140; 82550; 82607; 82652; 82746; 83735; 83874; 83883; 84425; 84443; 84550; 85027

== ENCOUNTER → 2023-10-11 | Outpatient (CLI) | payer OTHER, SELFPAY ==
--- NOTE | 2023-10-11 06:50 | MRI_ITS ---
EXAM: MR HEAD WITHOUT INTRAVENOUS CONTRAST CLINICAL INDICATION: left sided paresthesias TECHNIQUE: Multiplanar and multisequence MR images of the brain were obtained without intravenous contrast. COMPARISON: CT brain 12/01/2019, MR Head dated 06/20/2009 FINDINGS: BRAIN AND EXTRA-AXIAL SPACES: Normal. No intra- or extra-axial hemorrhage. No evidence of acute infarct. No intracranial mass or mass effect. There is preservation of the whitlock/white matter interface. Posterior fossa structures are unremarkable. Ventricles are appropriate for age. No hydrocephalus. Basal cisterns are patent. SELLA: Normal. Normal sella turcica, pituitary gland, infundibular stalk, optic chiasm and hypothalamus. AUDITORY SYSTEM: Normal. The internal auditory canals are patent. BONES/JOINTS: Intact calvarium. SINUSES: Unremarkable as visualized. Clear. MASTOID AIR CELLS: Unremarkable as visualized. Clear. ORBITS: Unremarkable as visualized. Both globes, extraocular muscles, optic nerves and retrobulbar fat appear unremarkable. VASCULATURE: Unremarkable as visualized. Normal flow voids in the major intracranial circulation.
== END | disposition home or self-care (01) ==
PROVIDERS: PCP Family Medicine; Referring Provider Psychiatry & Neurology Neurology; Visit Provider Psychiatry & Neurology Neurology
DX: R20.2 Paresthesia of skin (principal)
CPT/HCPCS: 70551

== ENCOUNTER → 2023-10-13 | Outpatient (CLI) | payer OTHER, SELFPAY ==
--- NOTE | 2023-10-13 13:23 | NEURO ---
NCS and/or EMG Patient Report Ordering Doctor: Ace Luke DATE OF SERVICE: 10/13/23 Clinical Summary: 38 year old male with symptoms of weakness in the upper and lower extremities. He also endorses having numbness in the left hand. Nerve Conduction Studies Summary: The left ulnar-D5 SNAP distal latency was prolonged with reduced amplitude. The left ulnar-melton SNAP amplitude was reduced. The left sural to radial SNAP amplitude ratio was 0.15 (<0.21) but otherwise nerve conduction studies, including amplitudes, distal latencies, and motor conduction velocities, were within normal ranges for the patient's stated age. Needle Examination Summary: Needle examination of select muscles of the left upper and lower extremity demonstrated a higher proportion of motor unit action potentials with increased amplitude and increased duration in the first dorsal interosseous muscle. Impression: There is electrodiagnostic evidence of a non-localizable, left ulnar mononeuropathy, with axonal loss. There is no electrodiagnostic evidence of a myopathic process, motor neuron disease, or left cervical/lumbosacral radiculopathy. There is no definite electrodiagnostic evidence of a large-fiber peripheral polyneuropathy. Multi Select Codes Neurology Neurology Interp Codes: 02109-98 Musc test done w/n test comp (interp) (2) and 49752-15 Nrv cndj test 11-12 studies (interp)
== END | disposition home or self-care (01) ==
LOC: PSN 12:20
PROVIDERS: PCP Family Medicine; Referring Provider Psychiatry & Neurology Neurology; Visit Provider Psychiatry & Neurology Neurology
DX: R20.2 Paresthesia of skin (principal); M54.50 Low back pain, unspecified
CPT/HCPCS: 95886; 95912

== ENCOUNTER 2024-02-02 06:59 | Emergency (ER) | payer OTHER, SELFPAY ==
[2024-02-02 07:00] VITALS: BP 130/76; PULSE 64; RESP 18; TEMP 36.4; O2SAT 97; BMI 29.2
--- NOTE | 2024-02-02 07:19 | EKG12_ITS ---
Test Reason : CP Blood Pressure : / mmHG Vent. Rate : 057 BPM Atrial Rate : 057 BPM P-R Int : 150 ms QRS Dur : 082 ms QT Int : 422 ms P-R-T Axes : 013 -01 015 degrees QTc Int : 410 ms Sinus bradycardia Otherwise normal ECG Confirmed by MANINDER MEYER MD ([id number]), restaurant expeditor JADA العلي ([id number]) on 02/03/2024 9:10:18 AM Referred By: JUNI Confirmed By:MANINDER MEYER MD
--- NOTE | 2024-02-02 07:19 | EDS_ITS ---
HPI History of Present Illness Chief Complaint: Chest Pain Informant: patient and spouse/S.O. Narrative Narrative: 38-year-old male presenting to the emergency department with a chief complaint of chest pain. Patient states that over the weekend he went camping with his spouse and family. He states he was experiencing some intermittent shortness of breath that seem different than normal. He states that he has had a fullness in his upper abdomen with occasional sharp pains left side of his chest. He states the pressure also is felt in the lower anterior chest near the midline. He states that this morning it woke him up around 0300 hrs. and again at 0500 hrs. He states that he took some Pepto thinking it might be gas. Seems to wax and wane/come and go. Denies any vomiting. He states he did drink alcohol probably more than what I should have this weekend. Denies any black or bloody stools. He states it seems like he should be able to belch and feel better but cannot. Denies any radiation to the back of the arms. No leg or arm symptoms. He started TRT 2 weeks ago. He is a non-smoker. [facility] Medical History Fatty liver Liver disease Obesity Anxiety Home Medications ?Medication ?Instructions ?Recorded ?Last Taken ?Type cholecalciferol (vitamin D3) 25 25 mcg PO DAILY 12/21/19 Unknown History mcg (1,000 unit) tablet coQ10 (ubiquinol) 100 mg capsule 1,000 mg PO BID 12/21/19 Unknown History mecobalamin (vitamin B12) 1,000 400 mcg PO DAILY 12/21/19 Unknown History mcg chewable tablet niacinamide 500 mg tablet 500 mg PO DAILY 12/21/19 Unknown History vit B complex 100 combo no.2 100 tab PO 12/21/19 Unknown History mg tablet,extended release (B-100 Complex ER) vitamin E 200 unit capsule 630 unit PO DAILY 12/21/19 Unknown History Allergy/AdvReac Type Severity Reaction Status Date / Time No Known Allergies Allergy Verified 09/23/23 13:06 Family History Father CAD (coronary artery disease) age 54 Social History Smoking Status: Former smoker quit date: 07/19/05 pack-years: 3 how long ago did patient quit smokinyrs alcohol intake: current alcohol intake frequency: a few times a week Alcohol type: beer and hard liquor substance use type: does not use ROS ROS ED Constitutional Constitutional ED: Denies chills, fever(s) or weight loss Eyes Eyes: Denies change in vision or diplopia ENT ENT ED: Denies ear pain, rhinorrhea or sore throat Cardiovascular Cardiovascular: Reports chest pain; Denies orthopnea, palpitations or racing heartbeat Respiratory/Chest Respiratory/Chest: Denies cough, dyspnea or orthopnea Gastrointestinal Gastrointestinal: Reports abdominal pain; Denies diarrhea, nausea or vomiting Genitourinary Genitourinary ED: Denies dysuria, hematuria or urinary frequency Musculoskeletal Musculoskeletal: Denies arthralgias, back pain or myalgias Integumentary Denies abscess or rash Neurologic Neurologic: Denies headache(s), paresthesias or weakness Psychiatric Psychiatric: Denies anxiety, depression, suicidal ideation or suicidal thoughts Endocrine Endocrinology: Denies polydipsia, polyphagia or polyuria Allergic/Immunologic Allergic/Immunologic ED: Denies mouth swelling, tongue swelling or urticaria EXAM Physical Exam Const Vital Signs: 02/02/24 07:00 02/02/24 08:00 02/02/24 09:00 Temperature 97.6 F L Temperature Source Temporal Pulse Rate 64 57 L 49 L Respiratory Rate 18 19 H 19 H Blood Pressure 130/76 H 125/87 H 120/78 Blood Pressure Mean 94 99 92 Pulse Ox 97 95 97 Oxygen Delivery Method Room Air Room Air Room Air 02/02/24 10:00 Temperature Temperature Source Pulse Rate Respiratory Rate Blood Pressure 127/89 H Blood Pressure Mean 101 Pulse Ox Oxygen Delivery Method Positive well nourished and well developed General Appearance ED: well developed and NAD HEENT Reports normocephalic, head/scalp atraumatic and moist mucous membranes Eyes PERRL and EOMs intact bilaterally Neck no lymphadenopathy, supple and no JVD Resp normal respiratory effort and clear to auscultation bilaterally Cardio regular rate, regular rhythm and no murmurs GI normal to inspection, nondistended, normoactive bowel sounds and non-tender Palpation: soft Back/Spine no CVA tenderness and normal ROM Extremity normal to inspection General Extremety ED: Negative for edema General Extremity: Negative for edema Neuro oriented x3 and CN's II-XII intact bilaterally Sensorium / Orientation: alert Motor Exam: strength 5/5 throughout Psych mental status grossly normal Mood & Affect: Negative for depressed or tearful Skin no rashes or lesions noted and no wounds MDM MDM MDM Narrative Medical decision making narrative: Differential diagnosis includes but not to acute coronary syndrome, pneumothorax, pleural effusion, aortic dissection, pulmonary embolism, gastritis/esophagitis, biliary colic, pancreatitis White count 4.5 hemoglobin 15.3 and platelet count 246. BMP within normal limits. LFTs demonstrate an ALT of 65. Lipase of 28. Initial troponin and D- dimer within normal limits. My independent interpretation of the chest x-ray is no acute process. I performed a bedside ultrasound of the gallbladder which does not demonstrate any pericholecystic fluid or cholelithiasis. Negative sonographic Calderón's. Delta troponin returns normal. Patient received a dose of Protonix. At this point I think the patient can be discharged home. I do recommend follow-up with primary care for possible cardiac stress testing. Unguinal write for Protonix over the next week. Would recommend avoidance of alcohol. This could be esophagitis/gastritis. Patient notes understanding the plan is comfortable with that will return if worsening or concerns History & Record Review Discussion w/independent historian: Patient and Significant other Lab Data Attestation: I reviewed the patient's lab results. Labs: Laboratory Results - last 24 hr 02/02/24 02/02/24 07:05 09:15 WBC 4.5 RBC 5.03 Hgb 15.3 Hct 45.1 MCV 89.7 MCH 30.4 MCHC 33.9 RDW Std Deviation 47.0 H RDW Coeff of Zoltan 14.5 Plt Count 246 MPV 10.0 Immature Gran % (Auto) 0.200 Neut % (Auto) 56.5 Lymph % (Auto) 31.7 Cameron % (Auto) 9.0 Eos % (Auto) 2.2 Baso % (Auto) 0.4 Absolute Neuts (auto) 2.6 Absolute Lymphs (auto) 1.44 Nucleated RBC % 0 D-Dimer Quant (PE/DVT) 0.29 Sodium 139 Potassium 4.1 Chloride 104 Carbon Dioxide 31.0 Anion Gap 4 L BUN 14 Creatinine 0.95 Estim Creat Clear Calc 125.15 Est GFR (MDRD) Af Amer 113 Est GFR (MDRD) Non-Af 93 BUN/Creatinine Ratio 14.8 Glucose 96 Calcium 9.6 Total Bilirubin 0.40 Direct Bilirubin 0.12 AST 37 ALT 65 H Alkaline Phosphatase 71 Troponin I High Sens 7 6 Total Protein 7.4 Albumin 3.8 Globulin 3.6 Lipase 28 Radiography Diagnostic Testing: Clinical Impression(s) from Imaging Studies Chest X-Ray 02/02/24 07:22 IMPRESSION: Normal x-ray examination of the chest. Electronically Signed: Bk Traore MD at 7:35 EDT , EKG Initial EKG: Attestation: I personally reviewed and interpreted this EKG as follows: Comments: Sinus bradycardia ventricular rate of 57 bpm Discharge Plan Triage Chief Complaint: Chest Pain ED Provider: Patel Michael Dx/Rx/DC Orders Prescriptions: No Action coQ10 (ubiquinol) 100 mg capsule 1,000 mg PO BID B-100 Complex 100 mg tablet extended release PO niacinamide 500 mg tablet 500 mg PO DAILY cholecalciferol (vitamin D3) 25 mcg (1,000 unit) tablet 25 mcg PO DAILY vitamin E 200 unit capsule 630 unit PO DAILY mecobalamin (vitamin B12) 1,000 mcg tablet,chewable 400 mcg PO DAILY Primary Care Provider: Sukh Marsh Referrals: Sukh Marsh DO [Primary Care Provider] - Print Language: Angolan
--- NOTE | 2024-02-02 07:22 | RAD_ITS ---
STUDY: X-RAY CHEST REASON FOR EXAM: Male, 38 years old. CP TECHNIQUE: Single AP portable view of the chest. COMPARISON: Comparison is made with prior study dated August 19, 2022 and May 24, 2016. FINDINGS: EKG electrodes are seen. The lungs are clear and expanded. There is no demonstrated pleural abnormality. Normal size heart. Normal mediastinum and bronson. Normal visualized pulmonary arteries. Normal visualized aortic arch and descending thoracic aorta. Normal visualized thoracic spine. Normal visualized ribs, clavicles, and shoulders. There is no demonstrated abnormality of the visualized soft tissue structures of the upper abdomen. RAD/Chest 1 View (Portable) IMPRESSION: Normal x-ray examination of the chest. Electronically Signed: Bk Traore MD at 7:35 EDT ,
[2024-02-02] MEDS: Aspirin 81 MG TAB.CHEW 324 MG PO (07:27)
[2024-02-02 07:28] LABS: Absolute Lymphocyte Count 1.44 X10^3/uL (0.83-4.51); Absolute Neutrophil Count 2.6 X10^3/uL (2.0-7.7); Basophil# 0.02 X10^3/uL; Basophil% 0.4 % (0-1); Eosinophils% 2.2 % (0-5); Hematocrit 45.1 % (40-54); Hemoglobin 15.3 g/dL (13.0-16.5); Lymphocyte # 1.44 X10^3/ul (0.83-4.51); Lymphocyte % 31.7 % (19-41); Mean Corp Hgb Conc 33.9 g/dL (32-36); Mean Corpuscular Hgb 30.4 pg (27.0-32.0); Mean Corpuscular Volume 89.7 fL (80-94); Monocyte# 0.41 X10^3/uL; NRBC Flagged by Analyzer 0 % (0-5); Neutrophil # 2.56 X10^3/uL (2.7-7.7); Neutrophil % 56.5 % (47-70); Platelet Count 246 K/mm3 (150-450); RBC Distribution Width CV 14.5 % (11.6-14.6); Red Blood Count 5.03 M/mm3 (4.6-6.2); White Blood Count 4.5 K/mm3 (4.4-11.0)
--- NOTE | 2024-02-02 07:28 | ED.RN ---
UNABLE TO SCAN [employer] D/T SCANNER NOT WORKING
[2024-02-02 07:38] LABS: D-Dimer Quantitative (DVT/PE) 0.29 FEU/ug/m (0.27-0.49)
[2024-02-02 07:49] LABS: AST(SGOT) 37 U/L (15-37); Alanine Aminotransfer ALT/SGPT 65 U/L (16-61); Albumin, Serum 3.8 g/dL (3.2-5.0); Alkaline Phosphatase 71 U/L (45-117); Anion Gap 4 (5-15); BUN 14 mg/dL (7-18); BUN/Creat Ratio 14.8 RATIO (10-20); Bilirubin, Direct 0.12 mg/dL (0.00-0.30); Calcium,Total 9.6 mg/dL (8.5-10.1); Chloride 104 mmol/L (98-107); Creatinine, Serum 0.95 mg/dL (0.70-1.30); EST Glomerular Filtration Rate 93 mL/min (>60); Est Glom Filt Rate - Afr Amer 113 mL/min (>60); Estimated Creatinine Clearance 125.15 ml/min; Globulin 3.6 g/dL (2.2-4.2); Glucose 96 mg/dL (74-106); Lipase 28 U/L (13-75); Potassium 4.1 mmol/L (3.5-5.1); Protein, Total 7.4 g/dL (6.4-8.2); Sodium Level 139 mmol/L (136-145); Troponin-I HS (w/2H Reflex) 7 pg/mL (3.0-78.0)
[2024-02-02 08:00] VITALS: BP 125/87; PULSE 57; RESP 19; O2SAT 95
[2024-02-02 09:00] VITALS: BP 120/78; PULSE 49; RESP 19; O2SAT 97
[2024-02-02 09:23] LABS: Reflex Troponin-HS? (from REC) Y
[2024-02-02] MEDS: Pantoprazole Sodium 40 MG Tablet PO (09:29)
[2024-02-02 09:52] LABS: Troponin-I HS 6 pg/mL (3.0-78.0)
[2024-02-02 10:00] VITALS: BP 127/89
[2024-02-02 10:18] VITALS: BP 127/67; PULSE 61; RESP 16; TEMP 36.8; O2SAT 100
== END 2024-02-02 10:18 | disposition home or self-care (01) ==
PROVIDERS: Emergency Provider Emergency Medicine; PCP Family Medicine; Visit Provider Emergency Medicine
DX: R07.9 Chest pain, unspecified (principal); R06.02 Shortness of breath; Z82.49 Family history of ischemic heart disease and other diseases of the circulatory system; Z79.899 Other long term (current) drug therapy; Z87.891 Personal history of nicotine dependence
CPT/HCPCS: 71045; 80048; 80076; 83690; 84484; 85025; 85379; 93005; 99284; A4216

== ENCOUNTER → 2025-01-24 | Outpatient (CLI) | payer BC, SELFPAY ==
[2025-01-24 14:07] LABS: Hematocrit 47.9 % (40-54); Hemoglobin 16.1 g/dL (13.0-16.5); Immature Granulocytes Count 0.010 X10^3/uL (0.0-0.0); Mean Corp Hgb Conc 33.6 g/dL (32-36); Mean Corpuscular Volume 90.4 fL (80-94); Mean Platelet Vol. 10.1 fl (6.2-12.0); NRBC Flagged by Analyzer 0 % (0-5); Platelet Count 243 K/mm3 (150-450); RBC Distribution Width CV 13.5 % (11.6-14.6); RBC Distribution Width SD 44.8 fl (35.1-43.9); Red Blood Count 5.30 M/mm3 (4.6-6.2); White Blood Count 4.0 K/mm3 (4.4-11.0)
[2025-01-24 14:32] LABS: AST(SGOT) 21 U/L (<=37); Alanine Aminotransfer ALT/SGPT 31 U/L (<=46); Albumin, Serum 4.5 g/dL (3.5-5.0); Alkaline Phosphatase 68 U/L (40-129); Anion Gap 13 (5-15); BUN 15 mg/dL (4-19); BUN/Creat Ratio 16.7 RATIO (10-20); Calcium,Total 9.7 mg/dL (7.6-11.0); Carbon Dioxide 24.0 mmol/L (21.0-32.0); Chloride 102 mmol/L (98-108); Cholesterol 253 mg/dL (<=200); D-Dimer Quantitative (DVT/PE) 0.27 FEU/ug/m (0.27-0.49); Globulin 2.8 g/dL (2.2-4.2); Glucose 93 mg/dL (70-99); Low Density Lipoprotein Calc. 185 mg/dL; PSA,Total - Annual Screen 0.47 ng/mL (0.02-4.00); Potassium 4.4 mmol/L (3.3-5.1); Triglycerides 82 mg/dL; Very Low Density Lipoprotein 16 mg/dL (5-40); cholesterol:hdl ratio screen 4.88
[2025-01-24 14:36] LABS: Pro- Brain NATRIURETIC PEPTIDE < 36 pg/mL (<=450); Troponin T High Sensitivity < 6 ng/L (<=22)
== END | disposition home or self-care (01) ==
LOC: BFHLAB 12:02
PROVIDERS: PCP Family Medicine; Visit Provider Nurse Practitioner Family
DX: Z00.01 Encounter for general adult medical examination with abnormal findings (principal); Z12.5 Encounter for screening for malignant neoplasm of prostate; R07.9 Chest pain, unspecified
CPT/HCPCS: 36415; 80053; 80061; 83880; 84153; 84484; 85025; 85379; G0103